=== PATIENT | female | born 1975 | race Two or more races ===

== ENCOUNTER 2016-09-01 06:26 | Observation (INO) | payer OTHER ==
[2016-09-01] VITALS (17 sets, daily range): BP systolic 104–144; BP diastolic 59–95; PULSE 73–93; RESP 14–23; Ht 160 cm; Wt 121.0 kg
[~2016-09-01] VITALS: Ht 160 cm; Wt 121.0 kg
[2016-09-01] MEDS ORDERED: LISI40TA9 PO (07:07)
[2016-09-01] MEDS ORDERED: AMLO-147 PO (07:08)
[2016-09-01] MEDS ORDERED: ESCI20TA PO (07:08)
[2016-09-01] MEDS ORDERED: LEVO100T82 PO (07:09)
[2016-09-01] MEDS ORDERED: RANO10002 PO (07:09)
[2016-09-01] MEDS ORDERED: METO-448 PO (07:10)
[2016-09-01] MEDS ORDERED: ROPI1TAB24 PO (07:11)
[2016-09-01] MEDS ORDERED: TEMA15CA6 PO (07:12)
[2016-09-01] MEDS ORDERED: FER325 PO (07:12)
[2016-09-01] MEDS ORDERED: ACET500C PO (07:14)
[2016-09-01] MEDS ORDERED: FURO-110 PO (07:14)
[2016-09-01] MEDS ORDERED: ISOS30TA5 PO (07:15)
--- NOTE | 2016-09-01 07:55 | RADRPT ---
PROCEDURE: XR Chest. CLINICAL INDICATION: Preoperative, coronary artery disease TECHNIQUE: Single frontal view of the chest was obtained COMPARISON: None FINDINGS: The heart and mediastinum are within normal limits. The lungs are clear. There is no pleural effusion or pneumothorax. RPTAT: AA IMPRESSION: No acute disease. .Jonathan Bell MD, MD Date Time Electronically viewed and signed by .Jonathan Bell MD, on 09/01/2016 07:55 .S/
[2016-09-01] MEDS ORDERED: DIPHENHYDRAMINE 50 MG CAP PO SCH (08:00)
[2016-09-01] MEDS ORDERED: SOD CHLORIDE 0.45% 1,000 ML IV SCH (08:00)
[2016-09-01] MEDS ORDERED: FAMOTIDINE 20 MG TAB PO SCH (08:00)
[2016-09-01] MEDS ORDERED: DIAZEPAM 5 MG TAB PO SCH (08:00)
[2016-09-01 08:20] LABS: ADD SCAN DIFF NO
[2016-09-01 08:30] LABS: ABNORMAL IP MESSAGE 1; BASOPHIL # 0.1 10^3/ul (0.0-0.1); BASOPHILS % 0.7 % (0.0-2.0); EOSINOPHILS # 0.2 10^3/ul (0.0-0.5); EOSINOPHILS % 2.6 % (0.0-7.0); HEMATOCRIT 34.2 % (37.0-47.0); HEMOGLOBIN 9.9 g/dl (12.0-16.0); LYMPHOCYTES # 2.6 10^3/ul (0.8-2.9); LYMPHOCYTES % 28.7 % (15.0-51.0); MEAN CORPUSCULAR HEMOGLOBIN 21.3 pg (29.0-33.0); MEAN CORPUSCULAR HGB CONC 28.9 g/dl (32.0-37.0); MEAN CORPUSCULAR VOLUME 73.7 fl (82.0-101.0); MEAN PLATELET VOLUME 10.2 fl (7.4-10.4); MONOCYTE # 0.6 10^3/ul (0.3-0.9); MONOCYTES % 6.4 % (0.0-11.0); NEUTROPHIL # 5.5 10^3/ul (1.6-7.5); NEUTROPHILS % 61.3 % (39.0-77.0); PLATELET COUNT 393 10^3/UL (140-415); RED BLOOD COUNT 4.64 10^6/ul (4.20-5.40); RED CELL DISTRIBUTION WIDTH 20.3 % (11.5-14.5); WHITE BLOOD COUNT 8.9 10^3/ul (4.8-10.8)
[2016-09-01 08:56] LABS: CHOL/HDL RATIO 5.2 RATIO; CREATININE 0.74 mg/dl (0.44-1.00); POTASSIUM 3.8 mmol/L (3.5-5.1)
[2016-09-01 08:57] LABS: CALCIUM 8.7 mg/dl (8.4-10.2); INR 0.99; PROTIME 13.1 Sec (12.2-14.2)
[2016-09-01 08:58] LABS: PARTIAL THROMBOPLASTIN TIME 27.5 Sec (25.0-35.0)
[2016-09-01] MEDS ORDERED: VERAPAMIL 5 MG INJ ONE (09:27)
[2016-09-01] MEDS ORDERED: MIDAZOLAM 1 MG/ML 2 ML INJ ONE (09:27)
[2016-09-01] MEDS ORDERED: LIDOCAINE 1% (MDV) 20 ML INJ ONE (09:27)
[2016-09-01] MEDS ORDERED: HEPARIN 1000 UNITS/ML 10 ML INJ ONE (09:27)
[2016-09-01] MEDS ORDERED: FENTAnyl 50 MCG/ML VIAL ONE (09:27)
[2016-09-01] MEDS ORDERED: NITROGLYCERIN (IC) 100 MCG/ML INJ ONE ×2 (09:28→10:11)
[2016-09-01] MEDS ORDERED: BIVALIRUDIN 250MG /NS 50 ML 50 ML IVPB ONE ×2 (10:21→10:43)
[2016-09-01] MEDS ORDERED: CLOPIDOGREL 300 MG TAB ONE (11:03)
[2016-09-01] MEDS ORDERED: ASPIRIN 325 MG TAB ONE (11:04)
[2016-09-01] MEDS ORDERED: IODIXANOL LOCM 100 ML BTL ONE ×2 (11:20→12:48)
[2016-09-01] MEDS ORDERED: BIVALIRUDIN 250MG /NS 50 ML 50 ML IVPB SCH (12:04)
[2016-09-01] MEDS ORDERED: SOD CHLORIDE 0.9% 1,000 ML IV SCH (12:04)
[2016-09-01] MEDS ORDERED: OXYCODONE/ACETAMINOPHEN (5/325) TAB PO PRN (12:30)
[2016-09-01] MEDS ORDERED: ZOLPIDEM 5 MG TAB PO PRN (12:30)
[2016-09-01] MEDS ORDERED: ONDANSETRON 4 MG INJ IV PRN (12:30)
[2016-09-01] MEDS ORDERED: ACETAMINOPHEN 325 MG TAB PO PRN (12:30)
[2016-09-01] MEDS ORDERED: morphine 2 MG INJ IV PRN (12:30)
[2016-09-01] MEDS ORDERED: AL HYDROX/MG HYDROX/SIMETH 30 ML CUP PO PRN (12:30)
--- NOTE | 2016-09-01 13:25 | RADRPT ---
Vent Rate: 72 bpm RR Interval: 0 msec SC Interval: 168 msec QRS Duration: 92 msec QT Interval: 444 msec QTC Interval: 486 msec P-R-T [place]: 39 - 30 - 29 degrees Normal sinus rhythm Prolonged QT Abnormal ECG Electronically Signed By: Yandel Salazar [id number]
--- NOTE | 2016-09-01 13:26 | RADRPT ---
Vent Rate: 73 bpm RR Interval: 0 msec [place] Interval: 176 msec QRS Duration: 92 msec QT Interval: 440 msec QTC Interval: 484 msec P-R-T [place]: 40 - 31 - 49 degrees Normal sinus rhythm Prolonged QT Abnormal ECG Electronically Signed By: Yandel Salazar [id number]
--- NOTE | 2016-09-01 14:16 | CARRPT ---
DATE OF PROCEDURE: 09/01/2016 TYPE OF PROCEDURE: 1. Left heart catheterization. 2. Coronary angiography. 3. Measurement of left ventricular end diastolic pressure. 4. Percutaneous transluminal coronary angioplasty with placement of Synergy drug-eluting stents x4 x1 to LAD with a 2.5 x 12 x1 mm to distal circumflex, 2.25 x 16 mm and x2 to ramus with a 2.5 x 8 mm and 2.5 x 20 mm. 5. Moderate conscious sedation x120 minutes. ATTENDING PHYSICIAN: Ilene Beasley MD REFERRING PHYSICIAN: Dr. Sonu Rojas. TYPE OF ANESTHESIA: Conscious and local. INDICATION: Chest pain with positive stress test findings for incidence of lateral ischemia. BRIEF HISTORY AND HOSPITAL: The patient is a 40-year-old female with history of hypertension, dysli pidemia who initially had complaints of substernal chest pain. The patient subsequently had a cardi ac stress test revealing positive ischemia in inferolateral distribution. Given these findings, the patient referred for and presents today in order to undergo left heart catheterization to assess fo r the possibility of significant obstructive coronary symptoms of chest pain and subsequent positive stress test findings. PROCEDURE: After informed consent was obtained, the patient was brought to the [facility] cardiac catheterization lab where her right radial area was prepped and draped in the usual fashion. Lidocaine 2% was instilled in the right radial area in order to achieve adequate anesthes ia. With modified Seldinger technique, the radial artery was cannulated and a 6[place] arterial she ath was placed. A 6[place] JL3.5 catheter was used to cannulate the left main coronary ostium. Wit h contrast injection, multiple views of the left coronary system were obtained. A ____JL3.5 ____ove r a guidewire and a JR4 was used to cannulate right coronary arterial ostium. With contrast injecti on, multiple views of the right coronary arterial system were obtained. A JL4 ____guidewire and a JR4 was then used across the LV. Left ventricular end-diastolic pressure was measured and pulled ba ck across the aortic valve to assess for significant gradient, which there was not and removed. At this time, given the findings of multivessel obstructive lesion, we moved directly to interventional procedure. An XB LAD 6[place] guide was used to cannulate the left main coronary ostium. A 0.014 balance ____ guidewire was passed distal to the lesion in the LAD, it was directly stented with a 2. 25 x 2.5 x 12 mm drug-eluting stent deployed at 14 atmospheres, post-dilated with the stent delivery system up to 16 atmospheres. Followup angiogram was obtained revealing excellent result deployment of the stent, PORSCHE 3 flow throughout the vessel, no signs of complication including perforation or dissection. Subsequently, at this time, the interventional stent delivery system was removed. The wire was pulled back and repositioned distal into the circumflex past the lesion in the distal circu mflex and this was initially ballooned with a 2.0 x 12 mm balloon up to 14 atmospheres. This was re moved and the lesion was stented with a 2.25 x 16 mm drug-eluting stent deployed at 14 atmospheres x 2. ____stent delivery system was removed. Followup angiogram was obtained revealing excellent resu lt deployment of the stent, PORSCHE 3 flow throughout the vessel, no signs of complication including pe rforation or dissection. Subsequently, at this time, the wire was removed, as there was a kink in t he wire and was causing a pushback on the stent and a new wire was inserted, this wire was a RUDI, bharathi corcoran able to use to use the cross lesion in the ramus and subsequently a 2.0 x 12 mm balloon was used t o perform balloon angioplasty upon this lesion. The balloon was removed after inflating multiple ti mes up to ____atmospheres and ____a very tight lesion and additionally ____ just distal to this and then subsequently at this time, this lesion was stented with a 2.5 x 20 mm drug-eluting stent deploy ed at 14 atmospheres x2. Followup angiogram was obtained after removal of the stent delivery system and revealing an excellent result ____ of the stent, PORSCHE 3 flow throughout the vessel, no signs of complication including perforation or dissection. Subsequently, at this time a 2.5 x 8 mm stent bharathi corcoran used to directly stent the ostium of this vessel and deployed at 14 atmospheres x2. The stent sys tem was removed. Followup angiogram was obtained revealing excellent deployment of this ____ stent and the flow throughout the vessel and no signs of complication including perforation or dissection. Subsequently, at this time, the interventional guidewires and guide were removed after patient had a final angiographic images taken of the head, giving 200 mcg of IC nitroglycerin. Patient was giv en 600 mg p.o. Plavix and 25 mg of aspirin and catheter was removed. The patient's sheath was reji usman. TR band was applied. There were no noted complications. FINDINGS: 1. Coronary angiography: Left main 5 mm, no significant stenoses. Circumflex proximally is a 3.0 mm vessel and then right after its takeoff has an cystic-appearing 60% stenosis to dominant circumfl ex in its distal portion. This left sided PDA has a 99% stenosis. There is a more proximal branchi ng obtuse marginal 2.5 mm with a separation to daughter branch with the superior branch having a 30% stenosis. The LAD proximally is a 3 mm vessel and in its midportion has a very focal 90% stenosis. The proximal part of the LAD has an approximately 40 to 50% stenosis. There are 2 mid branching d iagonals, each approximately 2 mm with no significant focal stenoses and the ramus branch, a 2.5 mm vessel with an ostial 80% stenosis and a mid-body 95% stenosis. The right coronary artery proximall y is a 2 mm vessel and thereafter with no significant focal stenoses of the nondominant vessel. PTCA and stent placement: Prior to PTCA and stent placement within the patient's LAD, there is a fo boby 80% stenosis. Post-PTCA and stent placement, there was no residual stenosis, PORSCHE 3 flow throug hout the vessel. No complication including perforation, dissection and additionally diagonal that b ifurcated midway to the lesion remained patent, did suffer some plaque shift and then subsequent im ages had improvement in flow to PORSCHE 3 ____. PTCA and stent placement within the patient's distal left-sided PDA prior to stent placement had a 9 9% stenosis. Post-PTCA and stent placement, the patient had no residual stenosis, PORSCHE 3 flow throu ghout the vessel, no signs of complication including perforation or dissection. PTCA and stent placement within the ramus: Prior to PTCA and stent placement in the ramus. The yuri ent had a mid-body 95% stenosis and a proximal ostial 80% stenosis post-PTCA and stent placement. T he patient had no residual stenosis in either region, PORSCHE 3 flow to the vessel and no signs of comp lication including perforation or dissection and a branch of the ramus that bifurcated midway throug h the stent remained widely patent with PORSCHE 3 flow and no significant plaque shift. TOTAL FLUOROSCOPY TIME: 37 minutes. TOTAL CONTRAST: ____ mL. IMPRESSION: Multivessel obstructive coronary artery disease status post successful percutaneous tr ansluminal coronary angioplasty and stent placement x1 to left anterior descending x1 to distal circ umflex and x2 to ramus. RECOMMENDATIONS: In light of procedure findings at this time would place the patient on: 1. Plavix 75 mg 1 tab p.o. daily x at least 1 year. 2. Aspirin 325 mg 1 tab p.o. daily indefinitely at this time. 3. Maximize medical management. 4. Aggressive risk factor reduction. 5. Patient will be admitted to the ICU for post-intervention observation and continued management o f symptoms with probable discharge the following day. ADDENDUM: The patient had measure of left ventricular end-diastolic pressure measured at 28. No sig nificant aortic stenosis by gradient. No LV gram undertaken due to contrast load and elevated press ures. Dictated By: ILENE WEINSTEIN/MAGALY Conf#: [id number] DID#: [id number]
--- NOTE | 2016-09-01 17:34 | HP ---
DATE OF ADMISSION: 09/01/2016 HISTORY OF PRESENT ILLNESS: The patient is a 40-year-old morbidly obese female with history of dysp antonino with history of hypertension, dyslipidemia and was seen by Dr. Beasley' group as an outpatient b ecause of substernal chest pain. Patient underwent nuclear stress test which was positive for ische micky encephalitis distribution. The patient was brought into the hospital today and underwent left h eart catheterization and the patient was noted to have multivessel obstructive coronary artery disea se. Read detailed cardiac catheterization report from Dr. Beasley for further information. The pat ient underwent PCI and stent placement to LAD and to distal circumflex and 2 stents to ramus. The p atient will be observed in the ICU. The patient after the procedure has remained chest pain free an d no reported diaphoresis, no reported shortness of breath. The patient is saturating 98% on room a ir. No reported recent fever or chills. No reported focal weakness. No reported cough, chest edgar estion. No reported abdominal pain. REVIEW OF SYSTEMS: The rest of review of systems was unremarkable. PAST MEDICAL HISTORY: As stated above. MEDICATIONS PRIOR TO ADMISSION: 1. Amlodipine. 2. Imdur. 3. Lisinopril. 4. Metoprolol. 5. Ranexa 6. Lexapro. 7. Requip. 8. Restoril. 9. Lasix. 10. Levoxyl. ALLERGIES: NONE. SOCIAL HISTORY: No smoking, no alcohol. FAMILY HISTORY: Noncontributory. PHYSICAL EXAMINATION: GENERAL: The patient is conscious, awake, alert, in no acute distress. VITAL SIGNS: Temperature 97.3, pulse 84, respirations 19, blood pressure 106/64, O2 saturation 99% on room air. HEENT: No eye discharge or redness. Oropharynx clear. NECK: Supple. No mass, no thyromegaly. CHEST: Fairly clear. No use of accessory muscles. CARDIOVASCULAR: S1, S2 normal. No murmur, gallop, or rub heard. ABDOMEN: Soft, nondistended, nontender. EXTREMITIES: No leg edema. Pedal pulses palpable. SKIN: Without acute rash. NEUROLOGIC: The patient is awake, alert, and with no gross focal deficit. LABORATORY DATA: WBC 8.9, hemoglobin 9.9, platelets 393. Sodium 141, potassium 3.8, BUN 18, creati nine 0.7, glucose 118, LDL 123, HDL 37. IMPRESSION: 1. Multivessel coronary artery disease status post percutaneous coronary intervention to the left a nterior descending, distal circumflex and ramus. 2. Hypertension. 3. Dyslipidemia. 4. Hypothyroidism. 5. Obesity. 6. Anemia. PLAN: Patient admitted in ICU and will be started on aspirin, Plavix and statin. We will also cont inue beta jas. Will hold off on Isordil and Amlodipine due to low blood pressure. We will als o hold off on Lasix for now. We will continue iron. The patient would need to follow up with her P MD for further workup for anemia. Apparently the patient is already on iron indicating that she has a known history of anemia. Further recommendations to depend on patient's hospital course and aria mmendations from Dr. Beasley. We will continue to follow from a medical standpoint. Dictated By: CAESAR WOOD/MAGALY Conf#: [id number] DID#: [id number]
[2016-09-01] MEDS ORDERED: METOPROLOL 25 MG TAB PO SCH (21:00)
[2016-09-01] MEDS: ATORVASTATIN 40 MG TAB NGT SCH (21:49)
[2016-09-01] MEDS: RANOLAZINE (SR) 500 MG TAB PO SCH (21:51)
[2016-09-01] MEDS: ROPINIROLE 1 MG TAB PO SCH (21:51)
[2016-09-02] VITALS (20 sets, daily range): BP systolic 73–137; BP diastolic 41–103; PULSE 65–81; RESP 0–26
[2016-09-02 05:15] LABS: ADD SCAN DIFF NO
[2016-09-02 05:25] LABS: BASOPHILS % 0.3 % (0.0-2.0); EOSINOPHILS # 0.2 10^3/ul (0.0-0.5); EOSINOPHILS % 2.7 % (0.0-7.0); HEMATOCRIT 31.5 % (37.0-47.0); HEMOGLOBIN 9.2 g/dl (12.0-16.0); LYMPHOCYTES # 2.6 10^3/ul (0.8-2.9); MEAN CORPUSCULAR HEMOGLOBIN 21.4 pg (29.0-33.0); MEAN CORPUSCULAR HGB CONC 29.2 g/dl (32.0-37.0); MEAN CORPUSCULAR VOLUME 73.3 fl (82.0-101.0); MEAN PLATELET VOLUME 9.6 fl (7.4-10.4); MONOCYTE # 0.7 10^3/ul (0.3-0.9); MONOCYTES % 8.1 % (0.0-11.0); NEUTROPHIL # 5.4 10^3/ul (1.6-7.5); NEUTROPHILS % 59.8 % (39.0-77.0); PLATELET COUNT 325 10^3/UL (140-415)
[2016-09-02 05:52] LABS: CALCIUM 8.5 mg/dl (8.4-10.2); CHOL/HDL RATIO 6.1 RATIO; CREATININE 0.68 mg/dl (0.44-1.00); POTASSIUM 3.6 mmol/L (3.5-5.1)
[2016-09-02 05:58] LABS: CK-MB 1.85 ng/ml (0.0-2.4)
[2016-09-02 06:15] LABS: TROPONIN-I 0.35 ng/ml (0.00-0.12)
[2016-09-02] MEDS ORDERED: LISINOPRIL 20 MG TAB PO SCH (09:00)
[2016-09-02] MEDS: FERROUS SULFATE (EC) 325 MG TAB PO SCH (09:00)
[2016-09-02] MEDS: ACETAZOLAMIDE (SR) 500 MG CAP PO SCH (09:01)
[2016-09-02] MEDS: LEVOTHYROXINE 100 MCG TAB PO SCH (09:01)
[2016-09-02] MEDS: ASPIRIN (EC) 325 MG TAB PO SCH (09:02)
[2016-09-02] MEDS: ESCITALOPRAM 10 MG TAB PO SCH (09:03)
[2016-09-02] MEDS: RANOLAZINE (SR) 500 MG TAB PO SCH ×2 (09:03→21:38)
[2016-09-02] MEDS: CLOPIDOGREL 75 MG TAB PO SCH (09:03)
--- NOTE | 2016-09-02 10:42 | PN ---
Date/Time of Note Date/Time of Note DATE: 09/02/16 TIME: 10:36 Assessment/Plan Lines/Catheters IV C[facility]ter Type (from [facility]): Peripheral IV Assessment/Plan Assessment/Plan 1. Multivessel coronary artery disease sp percutaneous coronary intervention to the left anterior descending, distal circumflex and ramus. Patient c/o chest pain and nausea at present - per cardiology - Elevated troponin 2. Hypertension. 3. Dyslipidemia. 4. Hypothyroidism. 5. Obesity. 6. Anemia. PLAN: Patient admitted in ICU and will be started on aspirin, Plavix and statin. We will also continue beta jas. Will hold off on Isordil and Amlodipine due to low blood pressure. We will also hold off on Lasix for now. We will continue iron. The patient would need to follow up with her PMD for further workup for anemia. Apparently the patient is already on iron indicating that she has a known history of anemia. Further recommendations to depend on patient's hospital course and recommendations from Dr. Beasley. We will continue to follow from a medical standpoint. Subjective 24 Hr Interval Summary Free Text/Dictation Patient c/o chest pain and nausea at present. denies any nausea/abdominal pain. Troponin elevated.daughter at bedside- all Qs answered. Eyes: no complaints ENT: no complaints Respiratory: no complaints Cardiovascular: chest pain Gastrointestinal: no complaints Genitourinary: no complaints Musculoskeletal: no complaints Skin: no complaints Neurologic: no complaints Endocrine: no complaints Lymphatic: no complaints Psychological: nl mood/affect Immunologic: no complaints Exam/Review of Systems Vital Signs Vitals Vital Signs Date Time Temp Pulse Resp B/P Pulse Ox O2 Delivery O2 Flow Rate FiO2 09/02/16 08:00 71 09/02/16 06:00 23 73/41 94 Room Air 09/02/16 04:00 98.2 Intake and Output 09/01/16 09/01/16 09/02/16 15:00 23:00 07:00 Intake Total 450 ml 720 ml 270 ml Output Total 400 ml 300 ml Balance 50 ml 420 ml 270 ml Exam Constitutional: alert, oriented, well developed Psych: nl mood/affect Head: atraumatic Eyes: EOMI Neck: non-tender Respiratory: clear to auscultation Cardiovascular: nl pulses, regular rate and rhythm Gastrointestinal: non-tender, soft Musculoskeletal: nl extremities to inspection Extremities: normal pulses Neurological: nl mental status, nl speech Skin: nl turgor Lymph: nontender Results Result Diagram: 09/02/16 0450 09/02/16 0450 Results 24 hrs Laboratory Tests Test 09/02/16 04:50 White Blood Count 9.0 Red Blood Count 4.30 Hemoglobin 9.2 L Hematocrit 31.5 L Mean Corpuscular Volume 73.3 L Mean Corpuscular Hemoglobin 21.4 L Mean Corpuscular Hemoglobin Concent 29.2 L Red Cell Distribution Width 20.0 H Platelet Count 325 Mean Platelet Volume 9.6 Neutrophils % 59.8 Lymphocytes % 29.0 Monocytes % 8.1 Eosinophils % 2.7 Basophils % 0.3 Nucleated Red Blood Cells % 0.0 Neutrophils # 5.4 Lymphocytes # 2.6 Monocytes # 0.7 Eosinophils # 0.2 Basophils # 0.0 Nucleated Red Blood Cells # 0.0 Sodium Level 139 Potassium Level 3.6 Chloride Level 109 Carbon Dioxide Level 24 Anion Gap 10 # Blood Urea Nitrogen 12 Creatinine 0.68 Glucose Level 95 Calcium Level 8.5 Creatine Kinase 117 Creatine Kinase Index 1.6 Creatinine Kinase MB (Mass) 1.85 Troponin I 0.350 *H Triglycerides Level 134 Cholesterol Level 196 LDL Cholesterol, Calculated 137 HDL Cholesterol 32 L Cholesterol/HDL Ratio 6.1 Medications Medications Current Medications Sodium Chloride (1/2 NS) 1,000 ml @ 0 mls/hr Q0M IV ; Start 09/01/16 at 08:00 Aspirin (Ecotrin) 325 mg DAILY PO Last administered on 09/02/16 09:02; Admin Dose 325 MG; Start 09/02/16 at 09:00 Clopidogrel Bisulfate (plaVIX) 75 mg DAILY PO Last administered on 09/02/16 09 :03; Admin Dose 75 MG; Start 09/02/16 at 09:00 Acetaminophen (Tylenol Tab) 650 mg Q4H PRN PO NON-CARDIAC PAIN LEVEL 1-3; Start 09/01/16 at 12:30 Oxycodone/ Acetaminophen (Percocet (5/ 325)) 1 tab Q4H PRN PO REPORTED NON- CARDIAC PAIN 4-7; Start 09/01/16 at 12:30 Morphine Sulfate (morphine) 1 mg Q1H PRN IV PAIN NOT RELIEVED BY OTHERS; Start 09/01/16 at 12:30 Al Hydrox/Mg Hydrox/Simethicone (Mag-Al Plus) 30 ml Q4H PRN PO GASTROINTESTINAL UPSET; Start 09/01/16 at 12:30 Ondansetron HCl (Zofran Inj) 4 mg Q4H PRN IV NAUSEA AND/OR VOMITING; Start at 12:30 Acetazolamide (Diamox Sequels) 500 mg DAILY PO Last administered on 09/02/16 09:01; Admin Dose 500 MG; Start 09/02/16 at 09:00 Escitalopram Oxalate (Lexapro) 20 mg DAILY PO Last administered on 09/02/16 09 :03; Admin Dose 20 MG; Start 09/02/16 at 09:00 Ferrous Sulfate (Ferrous Sulfate (Ec)) 325 mg DAILY PO ; Start 09/02/16 at 09:00 Lisinopril (Zestril) 40 mg DAILY PO ; Start 09/02/16 at 09:00 Metoprolol Tartrate (Lopressor) 25 mg QHS PO Last administered on 09/01/16 21: 50; Admin Dose 25 MG; Start 09/01/16 at 21:00 Ranolazine (Ranexa) 1,000 mg Q12 PO Last administered on 09/02/16 09:03; Admin Dose 1,000 MG; Start 09/01/16 at 21:00 Ropinirole HCl (Requip) 1.5 mg HS PO Last administered on 09/01/16 21:51; Admin Dose 1.5 MG; Start 09/01/16 at 21:00 Atorvastatin Calcium (Lipitor) 40 mg HS NGT Last administered on 09/01/16 21: 49; Admin Dose 40 MG; Start 09/01/16 at 21:00 CHRISTIAN LIVE September 02, 2016 10:42
--- NOTE | 2016-09-02 11:36 | CONS ---
Date/Time of Note Date/Time of Note DATE: 09/02/16 TIME: 11:31 Assessment/Plan Assessment/Plan Chief Complaint/Hosp Course IMP: 1.CAd s/p PTCA stent to Ramus x 2/Lcx x 1 and LAD x 1 POD#1 2.Abnl MPI-+ ischemia 3.Chest pain 4.HTN 5.HL 6.Hypothyroid 7.Headache 8.Anemia Recc: -Follow BP closely and change BB to BID dosing and decrase doses of zestril to allow patient to better tolerate -Follow for recurrent sx and follow headache of onset this am closely -Continue asa/plavix/statin/ranexa -Follow hgb closely -Ok to tele and possible d/c home if stable later in after noon with no sx. Problems: Consultation Date/Type/Reason Admit Date/Time September 01, 2016 at 12:04 Initial Consult Date 09/01/2016 Type of Consultation: Cardiology Reason for Consultation s/p PTCA/stent Referring Provider: MICHAEL CRANDALL MD Exam/Review of Systems Vital Signs Vitals Vital Signs Date Time Temp Pulse Resp B/P Pulse Ox O2 Delivery O2 Flow Rate FiO2 09/02/16 10:00 74 17 118/61 99 Room Air 09/02/16 08:00 98.4 Intake and Output 09/01/16 09/01/16 09/02/16 15:00 23:00 07:00 Intake Total 450 ml 720 ml 270 ml Output Total 400 ml 300 ml Balance 50 ml 420 ml 270 ml Exam Review of Systems: CONSTITUTIONAL: No fevers, chills. PULMONARY: No sob CARDIOVASCULAR: mild chest pain GASTROINTESTINAL: No nausea/vomiting. GENITOURINARY: No hematuria/dysuria. MUSCULOSKELETAL: No myagias/arthalgias. PSYCHIATRIC: The patient denies depression. NEUROLOGIC: Mild headache Constitutional: alert Psych: no complaints Head: normocephalic ENMT: mucosa pink and moist Neck: jvd (8 cm water), supple Respiratory: clear to auscultation Cardiovascular: regular rate and rhythm Gastrointestinal: non-tender, soft Musculoskeletal: muscle tone (normal) Extremities: other (No focalm deficits) Results Result Diagram: 09/02/16 0450 09/02/16 0450 Results 24 hrs Laboratory Tests Test 09/02/16 04:50 White Blood Count 9.0 Red Blood Count 4.30 Hemoglobin 9.2 L Hematocrit 31.5 L Mean Corpuscular Volume 73.3 L Mean Corpuscular Hemoglobin 21.4 L Mean Corpuscular Hemoglobin Concent 29.2 L Red Cell Distribution Width 20.0 H Platelet Count 325 Mean Platelet Volume 9.6 Neutrophils % 59.8 Lymphocytes % 29.0 Monocytes % 8.1 Eosinophils % 2.7 Basophils % 0.3 Nucleated Red Blood Cells % 0.0 Neutrophils # 5.4 Lymphocytes # 2.6 Monocytes # 0.7 Eosinophils # 0.2 Basophils # 0.0 Nucleated Red Blood Cells # 0.0 Sodium Level 139 Potassium Level 3.6 Chloride Level 109 Carbon Dioxide Level 24 Anion Gap 10 # Blood Urea Nitrogen 12 Creatinine 0.68 Glucose Level 95 Calcium Level 8.5 Creatine Kinase 117 Creatine Kinase Index 1.6 Creatinine Kinase MB (Mass) 1.85 Troponin I 0.350 *H Triglycerides Level 134 Cholesterol Level 196 LDL Cholesterol, Calculated 137 HDL Cholesterol 32 L Cholesterol/HDL Ratio 6.1 Medications Medications Current Medications Sodium Chloride (1/2 NS) 1,000 ml @ 0 mls/hr Q0M IV ; Start 09/01/16 at 08:00 Aspirin (Ecotrin) 325 mg DAILY PO Last administered on 09/02/16 09:02; Admin Dose 325 MG; Start 09/02/16 at 09:00 Clopidogrel Bisulfate (plaVIX) 75 mg DAILY PO Last administered on 09/02/16 09 :03; Admin Dose 75 MG; Start 09/02/16 at 09:00 Acetaminophen (Tylenol Tab) 650 mg Q4H PRN PO NON-CARDIAC PAIN LEVEL 1-3 Last administered on 09/02/16 11:21; Admin Dose 650 MG; Start 09/01/16 at 12:30 Oxycodone/ Acetaminophen (Percocet (5/ 325)) 1 tab Q4H PRN PO REPORTED NON- CARDIAC PAIN 4-7; Start 09/01/16 at 12:30 Morphine Sulfate (morphine) 1 mg Q1H PRN IV PAIN NOT RELIEVED BY OTHERS; Start 09/01/16 at 12:30 Al Hydrox/Mg Hydrox/Simethicone (Mag-Al Plus) 30 ml Q4H PRN PO GASTROINTESTINAL UPSET; Start 09/01/16 at 12:30 Ondansetron HCl (Zofran Inj) 4 mg Q4H PRN IV NAUSEA AND/OR VOMITING; Start at 12:30 Acetazolamide (Diamox Sequels) 500 mg DAILY PO Last administered on 09/02/16 09:01; Admin Dose 500 MG; Start 09/02/16 at 09:00 Escitalopram Oxalate (Lexapro) 20 mg DAILY PO Last administered on 09/02/16 09 :03; Admin Dose 20 MG; Start 09/02/16 at 09:00 Ferrous Sulfate (Ferrous Sulfate (Ec)) 325 mg DAILY PO ; Start 09/02/16 at 09:00 Lisinopril (Zestril) 40 mg DAILY PO ; Start 09/02/16 at 09:00 Metoprolol Tartrate (Lopressor) 25 mg QHS PO Last administered on 09/01/16 21: 50; Admin Dose 25 MG; Start 09/01/16 at 21:00 Ranolazine (Ranexa) 1,000 mg Q12 PO Last administered on 09/02/16 09:03; Admin Dose 1,000 MG; Start 09/01/16 at 21:00 Ropinirole HCl (Requip) 1.5 mg HS PO Last administered on 09/01/16 21:51; Admin Dose 1.5 MG; Start 09/01/16 at 21:00 Atorvastatin Calcium (Lipitor) 40 mg HS NGT Last administered on 09/01/16 21: 49; Admin Dose 40 MG; Start 09/01/16 at 21:00 ILENE BUTLER September 02, 2016 11:36
--- NOTE | 2016-09-02 17:38 | RADRPT ---
Vent Rate: 66 bpm RR Interval: 0 msec [place] Interval: 176 msec QRS Duration: 96 msec QT Interval: 460 msec QTC Interval: 482 msec P-R-T [place]: 46 - 35 - 27 degrees Normal sinus rhythm Prolonged QT Abnormal ECG Electronically Signed By: Yandel Salazar [id number]
[2016-09-02] MEDS: METOPROLOL 25 MG TAB PO SCH (21:37)
[2016-09-02] MEDS: ROPINIROLE 1 MG TAB PO SCH (21:38)
[2016-09-02] MEDS: ATORVASTATIN 40 MG TAB NGT SCH (21:39)
[2016-09-03] VITALS (21 sets, daily range): BP systolic 81–133; BP diastolic 50–93; PULSE 66–88; RESP 7–30
[2016-09-03 05:28] LABS: ADD SCAN DIFF NO
[2016-09-03 05:33] LABS: BASOPHILS % 0.5 % (0.0-2.0); EOSINOPHILS # 0.2 10^3/ul (0.0-0.5); HEMATOCRIT 30.5 % (37.0-47.0); HEMOGLOBIN 9.1 g/dl (12.0-16.0); LYMPHOCYTES # 2.7 10^3/ul (0.8-2.9); LYMPHOCYTES % 33.1 % (15.0-51.0); MEAN CORPUSCULAR HEMOGLOBIN 21.6 pg (29.0-33.0); MEAN CORPUSCULAR HGB CONC 29.8 g/dl (32.0-37.0); MEAN CORPUSCULAR VOLUME 72.3 fl (82.0-101.0); MEAN PLATELET VOLUME 9.4 fl (7.4-10.4); MONOCYTE # 0.6 10^3/ul (0.3-0.9); MONOCYTES % 7.9 % (0.0-11.0); NEUTROPHIL # 4.5 10^3/ul (1.6-7.5); NEUTROPHILS % 55.3 % (39.0-77.0); PLATELET COUNT 326 10^3/UL (140-415); RED BLOOD COUNT 4.22 10^6/ul (4.20-5.40); RED CELL DISTRIBUTION WIDTH 19.9 % (11.5-14.5); WHITE BLOOD COUNT 8.1 10^3/ul (4.8-10.8)
[2016-09-03 05:57] LABS: ALBUMIN 3.8 g/dl (3.3-4.9); POTASSIUM 3.9 mmol/L (3.5-5.1)
[2016-09-03 05:59] LABS: BILIRUBIN,INDIRECT 0.2 mg/dl (0-1.1); BILIRUBIN,TOTAL 0.2 mg/dl (0.2-1.3); CREATININE 0.66 mg/dl (0.44-1.00)
[2016-09-03 06:00] LABS: ALBUMIN/GLOBULIN RATIO 1.02; TOTAL PROTEIN 7.5 g/dl (6.1-8.1)
[2016-09-03 06:01] LABS: CALCIUM 9.1 mg/dl (8.4-10.2)
[2016-09-03] MEDS: ASPIRIN (EC) 325 MG TAB PO SCH (08:26)
[2016-09-03] MEDS: LEVOTHYROXINE 100 MCG TAB PO SCH (08:26)
[2016-09-03] MEDS: ACETAZOLAMIDE (SR) 500 MG CAP PO SCH (08:26)
[2016-09-03] MEDS: RANOLAZINE (SR) 500 MG TAB PO SCH ×2 (08:26→21:00)
[2016-09-03] MEDS: CLOPIDOGREL 75 MG TAB PO SCH (08:27)
[2016-09-03] MEDS: ESCITALOPRAM 10 MG TAB PO SCH (08:27)
[2016-09-03] MEDS: METOPROLOL 25 MG TAB PO SCH ×2 (08:33→20:59)
[2016-09-03] MEDS ORDERED: LISINOPRIL 20 MG TAB PO SCH (09:00)
[2016-09-03] MEDS: FERROUS SULFATE (EC) 325 MG TAB PO SCH (09:00)
--- NOTE | 2016-09-03 11:28 | RADRPT ---
Vent Rate: 69 bpm RR Interval: 0 msec [place] Interval: 174 msec QRS Duration: 98 msec QT Interval: 444 msec QTC Interval: 475 msec P-R-T [place]: 41 - 39 - 21 degrees Normal sinus rhythm Nonspecific T wave abnormality Prolonged QT Abnormal ECG Electronically Signed By: Yandel Salazar [id number]
--- NOTE | 2016-09-03 12:50 | CONS ---
Date/Time of Note Date/Time of Note DATE: 09/03/16 TIME: 12:47 Assessment/Plan Assessment/Plan Chief Complaint/Hosp Course IMP: 1.CAd s/p PTCA stent to Ramus x 2/Lcx x 1 and LAD x 1 POD#2. Minimal troponin after procedure as expected level with slow expected downtrend 2.Abnl MPI-+ ischemia 3.Chest pain- c/o mild chest tightness 4.HTN 5.HL 6.Hypothyroid 7.Headache 8.Anemia Recc: -Continue low dose BB as tolerated and zestril -Will add low dose oral nitrates and follow sx -Continue asa/plavix/statin/ranexa -Follow hgb closely -Ok to tele and possible d/c home if stable later in after noon with no sx. Problems: Consultation Date/Type/Reason Admit Date/Time September 03, 2016 at 10:41 Initial Consult Date 09/01/2016 Type of Consultation: Cardiology Reason for Consultation chest pain s/p ptca/stent Referring Provider: MICHAEL CRANDALL MD Exam/Review of Systems Vital Signs Vitals Vital Signs Date Time Temp Pulse Resp B/P Pulse Ox O2 Delivery O2 Flow Rate FiO2 09/03/16 12:00 84 09/03/16 10:00 7 97/69 91 Room Air 09/03/16 08:30 99.0 Intake and Output 09/02/16 09/02/16 09/03/16 15:00 23:00 07:00 Intake Total 480 ml Balance 480 ml Exam Review of Systems: CONSTITUTIONAL: No fevers, chills. PULMONARY: No sob CARDIOVASCULAR: intermittent chest pain GASTROINTESTINAL: No nausea/vomiting. GENITOURINARY: No hematuria/dysuria. MUSCULOSKELETAL: No myagias/arthalgias. PSYCHIATRIC: The patient denies depression. NEUROLOGIC: No weakness Constitutional: alert Psych: no complaints Head: normocephalic ENMT: mucosa pink and moist Neck: jvd (9 cm water), supple Respiratory: diminished breath sounds (at bases/B) Cardiovascular: regular rate and rhythm Gastrointestinal: non-tender, soft Musculoskeletal: muscle tone (normal) Extremities: edema (none) Neurological: other (No focal deficits) Results Result Diagram: 09/03/16 0450 09/03/16 0450 Results 24 hrs Laboratory Tests Test 09/02/16 15:53 09/03/16 04:50 Troponin I 0.191 *H 0.142 *H White Blood Count 8.1 Red Blood Count 4.22 Hemoglobin 9.1 L Hematocrit 30.5 L Mean Corpuscular Volume 72.3 L Mean Corpuscular Hemoglobin 21.6 L Mean Corpuscular Hemoglobin Concent 29.8 L Red Cell Distribution Width 19.9 H Platelet Count 326 Mean Platelet Volume 9.4 Neutrophils % 55.3 Lymphocytes % 33.1 Monocytes % 7.9 Eosinophils % 3.0 Basophils % 0.5 Nucleated Red Blood Cells % 0.0 Neutrophils # 4.5 Lymphocytes # 2.7 Monocytes # 0.6 Eosinophils # 0.2 Basophils # 0.0 Nucleated Red Blood Cells # 0.0 Sodium Level 141 Potassium Level 3.9 Chloride Level 106 Carbon Dioxide Level 22 Anion Gap 17 #H Blood Urea Nitrogen 12 Creatinine 0.66 Glucose Level 105 Calcium Level 9.1 Total Bilirubin 0.2 Direct Bilirubin 0.00 Indirect Bilirubin 0.2 Aspartate Amino Transf (AST/SGOT) 30 Alanine Aminotransferase (ALT/SGPT) 46 Alkaline Phosphatase 54 Total Protein 7.5 Albumin 3.8 Globulin 3.70 H Albumin/Globulin Ratio 1.02 Medications Medications Current Medications Sodium Chloride (1/2 NS) 1,000 ml @ 0 mls/hr Q0M IV ; Start 09/01/16 at 08:00 Aspirin (Ecotrin) 325 mg DAILY PO Last administered on 09/03/16 08:26; Admin Dose 325 MG; Start 09/02/16 at 09:00 Clopidogrel Bisulfate (plaVIX) 75 mg DAILY PO Last administered on 09/03/16 08 :27; Admin Dose 75 MG; Start 09/02/16 at 09:00 Acetaminophen (Tylenol Tab) 650 mg Q4H PRN PO NON-CARDIAC PAIN LEVEL 1-3 Last administered on 09/02/16 11:21; Admin Dose 650 MG; Start 09/01/16 at 12:30 Oxycodone/ Acetaminophen (Percocet (5/ 325)) 1 tab Q4H PRN PO REPORTED NON- CARDIAC PAIN 4-7; Start 09/01/16 at 12:30 Morphine Sulfate (morphine) 1 mg Q1H PRN IV PAIN NOT RELIEVED BY OTHERS; Start 09/01/16 at 12:30 Al Hydrox/Mg Hydrox/Simethicone (Mag-Al Plus) 30 ml Q4H PRN PO GASTROINTESTINAL UPSET; Start 09/01/16 at 12:30 Ondansetron HCl (Zofran Inj) 4 mg Q4H PRN IV NAUSEA AND/OR VOMITING; Start at 12:30 Acetazolamide (Diamox Sequels) 500 mg DAILY PO Last administered on 09/03/16 08:26; Admin Dose 500 MG; Start 09/02/16 at 09:00 Escitalopram Oxalate (Lexapro) 20 mg DAILY PO Last administered on 09/03/16 08 :27; Admin Dose 20 MG; Start 09/02/16 at 09:00 Ferrous Sulfate (Ferrous Sulfate (Ec)) 325 mg DAILY PO ; Start 09/02/16 at 09:00 Ranolazine (Ranexa) 1,000 mg Q12 PO Last administered on 09/03/16 08:26; Admin Dose 1,000 MG; Start 09/01/16 at 21:00 Ropinirole HCl (Requip) 1.5 mg HS PO Last administered on 09/02/16 21:38; Admin Dose 1.5 MG; Start 09/01/16 at 21:00 Atorvastatin Calcium (Lipitor) 40 mg HS NGT Last administered on 09/02/16 21: 39; Admin Dose 40 MG; Start 09/01/16 at 21:00 Lisinopril (Zestril) 20 mg DAILY PO Last administered on 09/03/16 08:32; Admin Dose 20 MG; Start 09/03/16 at 09:00 Metoprolol Tartrate (Lopressor) 12.5 mg BID PO Last administered on 09/03/16 08:33; Admin Dose 12.5 MG; Start 09/02/16 at 21:00 ILENE BUTLER September 03, 2016 12:50
--- NOTE | 2016-09-03 13:25 | PN ---
DATE: 09/03/2016 SUBJECTIVE: Followup on 40-year-old female status post percutaneous transluminal coronary angioplas ty with placement of drug-eluting stents x4, x1 to LAD to distal circumflex and to ramus. Troponin downtrending. The patient is awake, alert and complains of some intermittent chest tightening and a lso complains of being anxious. Stable vital signs. Denies any shortness of breath. OBJECTIVE: VITAL SIGNS: Temperature is 99.0, pulse is 84, blood pressure is 97/69, respiratory rate 20, oxygen saturation is 92% on room air. GENERAL: Obese female, currently is awake, alert. LUNGS: Clear. HEART: Normal S1, S2. No murmurs ____noted. ABDOMEN: Protuberant, bowel sounds present. EXTREMITIES: No edema. LABORATORY AND DIAGNOSTIC DATA: CBC: White blood cells 8.1, hemoglobin 9.1, hematocrit 30.5, plate lets 326. Chemistry: Sodium is 141, potassium 3.9, chloride 106, carbon dioxide 22, anion gap 17, BUN is 12, creatinine 0.66, glucose 105. Troponin is 0.142. ASSESSMENT AND PLAN: 1. Coronary artery disease status post percutaneous transluminal coronary angioplasty, stent to jackie us and left anterior descending. Dr. Beasley is following in cardiology consultation. Continue asp irin and Plavix. Okay to monitor patient on telemetry floor. 2. Hypertension. Continue lisinopril and metoprolol. 3. Hypothyroidism. Continue Synthroid. 4. Obesity with body mass index of 47.3. 5. Anemia. Continue to monitor hemoglobin and hematocrit. Continue iron supplements. 6. Hyperlipidemia. Continue statins. 7. We will continue Protonix for peptic ulcer disease prophylaxis. Further recommendations based o n clinical course. Plan of care discussed with Dr. Gates. Dictated By: ROGER MARKS [employer]ING CLEANER for CAESAR GATES MD SR/NTS Conf#: [id number] DID#: [id number]
[2016-09-03] MEDS: ISOSORBIDE DINITRATE 10 MG TAB PO SCH ×2 (15:04→20:59)
[2016-09-03] MEDS ORDERED: ALPRAZOLAM 0.25 MG TAB PO PRN (19:30)
[2016-09-03] MEDS: ATORVASTATIN 40 MG TAB NGT SCH (21:00)
[2016-09-03] MEDS: ROPINIROLE 1 MG TAB PO SCH (21:01)
[2016-09-04] VITALS (11 sets, daily range): BP systolic 103–147; BP diastolic 55–78; PULSE 64–81; RESP 16–20
[2016-09-04] MEDS ORDERED: PANTOPRAZOLE (EC) 40 MG TAB PO SCH (06:00)
[2016-09-04] MEDS: LEVOTHYROXINE 100 MCG TAB PO SCH (06:22)
[2016-09-04] MEDS ORDERED: LISINOPRIL 5 MG TAB PO SCH (09:00)
[2016-09-04] MEDS: FERROUS SULFATE (EC) 325 MG TAB PO SCH (09:00)
[2016-09-04] MEDS: RANOLAZINE (SR) 500 MG TAB PO SCH (09:07)
[2016-09-04] MEDS: ACETAZOLAMIDE (SR) 500 MG CAP PO SCH (09:08)
[2016-09-04] MEDS: ESCITALOPRAM 10 MG TAB PO SCH (09:08)
[2016-09-04] MEDS: ISOSORBIDE DINITRATE 10 MG TAB PO SCH ×2 (09:08→13:12)
[2016-09-04] MEDS: CLOPIDOGREL 75 MG TAB PO SCH (09:09)
[2016-09-04] MEDS: ASPIRIN (EC) 325 MG TAB PO SCH (09:09)
[2016-09-04] MEDS: METOPROLOL 25 MG TAB PO SCH (09:09)
[2016-09-04 10:27] LABS: ADD SCAN DIFF NO
[2016-09-04 10:31] LABS: BASOPHILS % 0.3 % (0.0-2.0); EOSINOPHILS # 0.2 10^3/ul (0.0-0.5); EOSINOPHILS % 2.7 % (0.0-7.0); HEMOGLOBIN 9.1 g/dl (12.0-16.0); LYMPHOCYTES # 1.6 10^3/ul (0.8-2.9); LYMPHOCYTES % 21.9 % (15.0-51.0); MEAN CORPUSCULAR HEMOGLOBIN 21.5 pg (29.0-33.0); MEAN CORPUSCULAR HGB CONC 29.4 g/dl (32.0-37.0); MEAN CORPUSCULAR VOLUME 73.3 fl (82.0-101.0); MEAN PLATELET VOLUME 9.6 fl (7.4-10.4); MONOCYTE # 0.3 10^3/ul (0.3-0.9); MONOCYTES % 4.7 % (0.0-11.0); NEUTROPHILS % 70.1 % (39.0-77.0); PLATELET COUNT 321 10^3/UL (140-415); RED BLOOD COUNT 4.23 10^6/ul (4.20-5.40); RED CELL DISTRIBUTION WIDTH 20.2 % (11.5-14.5); WHITE BLOOD COUNT 7.1 10^3/ul (4.8-10.8)
[2016-09-04 10:47] LABS: POTASSIUM 3.9 mmol/L (3.5-5.1)
[2016-09-04 10:50] LABS: CREATININE 0.7 mg/dl (0.44-1.00)
[2016-09-04 10:51] LABS: CALCIUM 8.9 mg/dl (8.4-10.2)
--- NOTE | 2016-09-04 12:21 | PN ---
Date/Time of Note Date/Time of Note DATE: 09/04/16 TIME: 12:21 Assessment/Plan VTE Prophylaxis VTE Prophylaxis Intervention: other Lines/Catheters IV Catheter Type (from [facility]): Peripheral IV Assessment/Plan Chief Complaint/Hosp Course 1. Coronary artery disease status post percutaneous transluminal coronary angioplasty, stent to ramus and left anterior descending. Dr. Beasley is following in cardiology consultation. Continue aspirin and Plavix. Okay to monitor patient on telemetry floor. 2. Hypertension. Continue lisinopril and metoprolol. 3. Hypothyroidism. Continue Synthroid. 4. Obesity with body mass index of 47.3. 5. Anemia. Continue to monitor hemoglobin and hematocrit. Continue iron supplements. 6. Hyperlipidemia. Continue statins. 7. We will continue Protonix for peptic ulcer disease prophylaxis. Further recommendations based on clinical course. Problems: Subjective 24 Hr Interval Summary Free Text/Dictation Patient has no complaints Exam/Review of Systems Vital Signs Vitals Vital Signs Date Time Temp Pulse Resp B/P Pulse Ox O2 Delivery O2 Flow Rate FiO2 09/04/16 11:05 98.1 67 17 103/56 96 09/04/16 01:40 Room Air Intake and Output 09/03/16 09/03/16 09/04/16 15:00 23:00 07:00 Intake Total 760 ml 540 ml 250 ml Balance 760 ml 540 ml 250 ml Exam Constitutional: well developed Head: atraumatic, normocephalic Neck: supple Respiratory: clear to auscultation Cardiovascular: regular rate and rhythm Gastrointestinal: non-tender, soft Extremities: normal pulses Results Result Diagram: 09/04/16 1005 09/04/16 1005 Results 24 hrs Laboratory Tests Test 09/04/16 10:05 White Blood Count 7.1 Red Blood Count 4.23 Hemoglobin 9.1 L Hematocrit 31.0 L Mean Corpuscular Volume 73.3 L Mean Corpuscular Hemoglobin 21.5 L Mean Corpuscular Hemoglobin Concent 29.4 L Red Cell Distribution Width 20.2 H Platelet Count 321 Mean Platelet Volume 9.6 Neutrophils % 70.1 Lymphocytes % 21.9 Monocytes % 4.7 Eosinophils % 2.7 Basophils % 0.3 Nucleated Red Blood Cells % 0.0 Neutrophils # 5.0 Lymphocytes # 1.6 Monocytes # 0.3 Eosinophils # 0.2 Basophils # 0.0 Nucleated Red Blood Cells # 0.0 Sodium Level 140 Potassium Level 3.9 Chloride Level 105 Carbon Dioxide Level 22 Anion Gap 17 H Blood Urea Nitrogen 13 Creatinine 0.70 Glucose Level 148 # Calcium Level 8.9 Medications Medications Current Medications Sodium Chloride (1/2 NS) 1,000 ml @ 0 mls/hr Q0M IV ; Start 09/01/16 at 08:00 Aspirin (Ecotrin) 325 mg DAILY PO Last administered on 09/04/16 09:09; Admin Dose 325 MG; Start 09/02/16 at 09:00 Clopidogrel Bisulfate (plaVIX) 75 mg DAILY PO Last administered on 09/04/16 09 :09; Admin Dose 75 MG; Start 09/02/16 at 09:00 Acetaminophen (Tylenol Tab) 650 mg Q4H PRN PO NON-CARDIAC PAIN LEVEL 1-3 Last administered on 09/02/16 11:21; Admin Dose 650 MG; Start 09/01/16 at 12:30 Oxycodone/ Acetaminophen (Percocet (5/ 325)) 1 tab Q4H PRN PO REPORTED NON- CARDIAC PAIN 4-7; Start 09/01/16 at 12:30 Morphine Sulfate (morphine) 1 mg Q1H PRN IV PAIN NOT RELIEVED BY OTHERS; Start 09/01/16 at 12:30 Al Hydrox/Mg Hydrox/Simethicone (Mag-Al Plus) 30 ml Q4H PRN PO GASTROINTESTINAL UPSET; Start 09/01/16 at 12:30 Ondansetron HCl (Zofran Inj) 4 mg Q4H PRN IV NAUSEA AND/OR VOMITING; Start at 12:30 Acetazolamide (Diamox Sequels) 500 mg DAILY PO Last administered on 09/04/16 09:08; Admin Dose 500 MG; Start 09/02/16 at 09:00 Escitalopram Oxalate (Lexapro) 20 mg DAILY PO Last administered on 09/04/16 09 :08; Admin Dose 20 MG; Start 09/02/16 at 09:00 Ferrous Sulfate (Ferrous Sulfate (Ec)) 325 mg DAILY PO ; Start 09/02/16 at 09:00 Ranolazine (Ranexa) 1,000 mg Q12 PO Last administered on 09/04/16 09:07; Admin Dose 1,000 MG; Start 09/01/16 at 21:00 Ropinirole HCl (Requip) 1.5 mg HS PO Last administered on 09/03/16 21:01; Admin Dose 1.5 MG; Start 09/01/16 at 21:00 Atorvastatin Calcium (Lipitor) 40 mg HS NGT Last administered on 09/03/16 21: 00; Admin Dose 40 MG; Start 09/01/16 at 21:00 Metoprolol Tartrate (Lopressor) 12.5 mg BID PO Last administered on 09/04/16 09:09; Admin Dose 12.5 MG; Start 09/02/16 at 21:00 Lisinopril (Zestril) 5 mg DAILY PO Last administered on 09/04/16 09:09; Admin Dose 5 MG; Start 09/04/16 at 09:00 Isosorbide Dinitrate (Isordil) 10 mg TID PO Last administered on 09/04/16 09: 08; Admin Dose 10 MG; Start 09/03/16 at 13:00 Pantoprazole (Protonix Tab) 40 mg DAILY@06 PO Last administered on 09/04/16 06 :22; Admin Dose 40 MG; Start 09/04/16 at 06:00 Alprazolam (Xanax) 0.5 mg Q6H PRN PO ANXIETY; Start 09/03/16 at 19:30 NIC SAHU September 04, 2016 12:21
--- NOTE | 2016-09-04 16:45 | CONS ---
Date/Time of Note Date/Time of Note DATE: 09/04/16 TIME: 16:42 Assessment/Plan Assessment/Plan Additional Assessment/Plan CAD s/p PTCA stenting HTN Dyslipidemia Hypothyroid Anemia Asymptomatic Hemodynamically stable Continue Metoprolol Continue ASA and Plavix Continue Lisinopril Continue Imdur Continue Lipitor Discontinue Ranexa Consultation Date/Type/Reason Admit Date/Time September 03, 2016 at 10:41 Eyes: no complaints ENT: no complaints Respiratory: no complaints Cardiovascular: chest pain Gastrointestinal: no complaints Genitourinary: no complaints Musculoskeletal: no complaints Skin: no complaints Neurologic: no complaints Endocrine: no complaints Lymphatic: no complaints Psychological: no complaints Immunologic: no complaints Social History Smoking Status: Never smoker Exam/Review of Systems Vital Signs Vitals Vital Signs Date Time Temp Pulse Resp B/P Pulse Ox O2 Delivery O2 Flow Rate FiO2 09/04/16 16:09 64 09/04/16 15:25 98.3 17 110/65 98 09/04/16 01:40 Room Air Intake and Output 09/03/16 09/03/16 09/04/16 15:00 23:00 07:00 Intake Total 760 ml 540 ml 250 ml Balance 760 ml 540 ml 250 ml Exam Constitutional: alert, oriented, well developed Head: atraumatic, normocephalic Neck: non-tender, supple Respiratory: clear to auscultation Cardiovascular: regular rate and rhythm Gastrointestinal: nl liver, spleen, non-tender, soft Extremities: normal pulses Results Result Diagram: 09/04/16 1005 09/04/16 1005 Results 24 hrs Laboratory Tests Test 09/04/16 10:05 White Blood Count 7.1 Red Blood Count 4.23 Hemoglobin 9.1 L Hematocrit 31.0 L Mean Corpuscular Volume 73.3 L Mean Corpuscular Hemoglobin 21.5 L Mean Corpuscular Hemoglobin Concent 29.4 L Red Cell Distribution Width 20.2 H Platelet Count 321 Mean Platelet Volume 9.6 Neutrophils % 70.1 Lymphocytes % 21.9 Monocytes % 4.7 Eosinophils % 2.7 Basophils % 0.3 Nucleated Red Blood Cells % 0.0 Neutrophils # 5.0 Lymphocytes # 1.6 Monocytes # 0.3 Eosinophils # 0.2 Basophils # 0.0 Nucleated Red Blood Cells # 0.0 Sodium Level 140 Potassium Level 3.9 Chloride Level 105 Carbon Dioxide Level 22 Anion Gap 17 H Blood Urea Nitrogen 13 Creatinine 0.70 Glucose Level 148 # Calcium Level 8.9 Medications Medications Current Medications Sodium Chloride (1/2 NS) 1,000 ml @ 0 mls/hr Q0M IV ; Start 09/01/16 at 08:00 Aspirin (Ecotrin) 325 mg DAILY PO Last administered on 09/04/16 09:09; Admin Dose 325 MG; Start 09/02/16 at 09:00 Clopidogrel Bisulfate (plaVIX) 75 mg DAILY PO Last administered on 09/04/16 09 :09; Admin Dose 75 MG; Start 09/02/16 at 09:00 Acetaminophen (Tylenol Tab) 650 mg Q4H PRN PO NON-CARDIAC PAIN LEVEL 1-3 Last administered on 09/02/16 11:21; Admin Dose 650 MG; Start 09/01/16 at 12:30 Oxycodone/ Acetaminophen (Percocet (5/ 325)) 1 tab Q4H PRN PO REPORTED NON- CARDIAC PAIN 4-7; Start 09/01/16 at 12:30 Morphine Sulfate (morphine) 1 mg Q1H PRN IV PAIN NOT RELIEVED BY OTHERS; Start 09/01/16 at 12:30 Al Hydrox/Mg Hydrox/Simethicone (Mag-Al Plus) 30 ml Q4H PRN PO GASTROINTESTINAL UPSET; Start 09/01/16 at 12:30 Ondansetron HCl (Zofran Inj) 4 mg Q4H PRN IV NAUSEA AND/OR VOMITING; Start at 12:30 Acetazolamide (Diamox Sequels) 500 mg DAILY PO Last administered on 09/04/16 09:08; Admin Dose 500 MG; Start 09/02/16 at 09:00 Escitalopram Oxalate (Lexapro) 20 mg DAILY PO Last administered on 09/04/16 09 :08; Admin Dose 20 MG; Start 09/02/16 at 09:00 Ferrous Sulfate (Ferrous Sulfate (Ec)) 325 mg DAILY PO ; Start 09/02/16 at 09:00 Ranolazine (Ranexa) 1,000 mg Q12 PO Last administered on 09/04/16 09:07; Admin Dose 1,000 MG; Start 09/01/16 at 21:00 Ropinirole HCl (Requip) 1.5 mg HS PO Last administered on 09/03/16 21:01; Admin Dose 1.5 MG; Start 09/01/16 at 21:00 Atorvastatin Calcium (Lipitor) 40 mg HS NGT Last administered on 09/03/16 21: 00; Admin Dose 40 MG; Start 09/01/16 at 21:00 Metoprolol Tartrate (Lopressor) 12.5 mg BID PO Last administered on 09/04/16 09:09; Admin Dose 12.5 MG; Start 09/02/16 at 21:00 Lisinopril (Zestril) 5 mg DAILY PO Last administered on 09/04/16 09:09; Admin Dose 5 MG; Start 09/04/16 at 09:00 Isosorbide Dinitrate (Isordil) 10 mg TID PO Last administered on 09/04/16 13: 12; Admin Dose 10 MG; Start 09/03/16 at 13:00 Pantoprazole (Protonix Tab) 40 mg DAILY@06 PO Last administered on 09/04/16 06 :22; Admin Dose 40 MG; Start 09/04/16 at 06:00 Alprazolam (Xanax) 0.5 mg Q6H PRN PO ANXIETY; Start 09/03/16 at 19:30 CLAUDIA ALVAREZ M.D. September 04, 2016 16:45
[2016-09-04] MEDS ORDERED: CLOP75TA27 PO (18:02)
[2016-09-04] MEDS ORDERED: ASPI325T32 PO (18:02)
[2016-09-04] MEDS ORDERED: CLOPIDOGREL 75 MG TAB PO ONE (18:30)
--- NOTE | 2016-09-09 11:46 | DS ---
Date/Time of Note Date/Time of Note DATE: 09/09/16 TIME: 11:44 Discharge Summary Admission/Discharge Info Admit Date/Time September 01, 2016 at 12:04 Discharge Date/Time September 04, 2016 at 18:50 Final Diagnosis 1) chest pain 2) coronary artery disease Consults cardiology Procedures Cardiac catheterization with PCI and stent Hx of Present Illness Patient with coronary artery disease comes in with chest pain. Hospital Course Patient with coronary artery disease comes in with chest pain. Patient was found to have coronary artery stenosis. Patient underwent PCI with stent placement 1. Coronary artery disease status post percutaneous transluminal coronary angioplasty, stent to ramus and left anterior descending. Dr. Beasley is following in cardiology consultation. Continue aspirin and Plavix. Okay to monitor patient on telemetry floor. 2. Hypertension. Continue lisinopril and metoprolol. 3. Hypothyroidism. Continue Synthroid. 4. Obesity with body mass index of 47.3. 5. Anemia. Continue to monitor hemoglobin and hematocrit. Continue iron supplements. 6. Hyperlipidemia. Continue statins. 7. We will continue Protonix for peptic ulcer disease prophylaxis. Further recommendations based on clinical course. Home Meds Reported Medications Aspirin* (Aspirin* EC) 325 Mg Tab, 325 MG PO DAILY, TAB 09/04/16 Clopidogrel Bisulfate (Clopidogrel) 75 Mg Tablet, 75 MG PO DAILY, #30 TAB 09/04/16 Isosorbide Mononitrate* (Isosorbide Mononitrate*) 30 Mg Tab.er.24h, 30 MG PO DAILY, TAB 09/01/16 Furosemide* (Lasix*) 20 Mg Tablet, 20 MG PO DAILY, TAB 09/01/16 Acetazolamide* (Acetazolamide* ER) 500 Mg Capsule.er, 500 MG PO DAILY, #30 CAP 09/01/16 Temazepam* (Restoril*) 15 Mg Capsule, 15 MG PO HS Y for INSOMNIA, CAP 09/01/16 Ferrous Sulfate* (Ferrous Sulfate*) 325 Mg Tabec, 325 MG PO DAILY, TAB 09/01/16 Ropinirole Hcl* (Requip*) 1 Mg Tablet, 1.5 MG PO HS, TAB 09/01/16 Metoprolol Tartrate* (Lopressor*) 25 Mg Tab, 25 MG PO QHS, #60 TAB 09/01/16 Levothyroxine Sodium* (Levoxyl*) 100 Mcg Tablet, 100 MCG PO BEFORE BREAKFAST, # 30 TAB 09/01/16 Escitalopram Oxalate* (Lexapro*) 20 Mg Tablet, 20 MG PO DAILY, #30 TAB 09/01/16 Amlodipine Besylate* (Amlodipine Besylate*) 10 Mg Tablet, 10 MG PO DAILY, #30 TAB 09/01/16 Lisinopril* (Lisinopril*) 40 Mg Tablet, 40 MG PO DAILY, #30 TAB 09/01/16 Discontinued Reported Medications Ranolazine* (Ranexa*) 1,000 Mg Tab.sr.12h, 1000 MG PO Q12, TAB 09/01/16 Primary Care Provider NIC Marquez Sep 09, 2016 11:46
== END 2016-09-04 18:50 | disposition home or self-care (01) ==
LOC: SDS 06:26 → ICU 12:04 → INTOOBSV 09-03 10:41 → OBSVTOIN 09-03 10:41 → TEL 09-04 01:30
PROVIDERS: ADMIT Internal Medicine; ATTEND Internal Medicine
DX: I25.10 Atherosclerotic heart disease of native coronary artery without angina pectoris (principal); I10 Essential (primary) hypertension; E03.9 Hypothyroidism, unspecified; D64.9 Anemia, unspecified; E78.5 Hyperlipidemia, unspecified; E66.01 Morbid (severe) obesity due to excess calories; Z68.42 Body mass index [BMI] 45.0-49.9, adult; R51 Headache
CPT/HCPCS: 71010; 80048; 80053; 80061; 82550; 82553; 82962; 84484; 85025; 85610; 85730; 87081; 93005; 93458; C1725; C1769; C1874; C1887; C9600; C9601; J0583; J1644; J2250; J3010; Q9967; Z7500; Z7610; G0378

== ENCOUNTER 2016-09-23 23:42 | Observation (INO) | payer OTHER ==
[~2016-09-23] VITALS: Ht 160 cm; Wt 116.0 kg
[~2016-09-23 23:42] MED LIST: ACET500C PO; AMLO-147 PO; ASPI325T32 PO; CLOP75TA27 PO; ESCI20TA PO; FER325 PO; FURO-110 PO; ISOS30TA5 PO; LEVO100T82 PO; LISI40TA9 PO; METO-448 PO; ROPI1TAB24 PO; TEMA15CA6 PO
[2016-09-23 23:49] VITALS: Ht 160 cm; Wt 116.0 kg
--- NOTE | 2016-09-23 23:58 | ERA ---
ER Documentation Chief Complaint Date/Time DATE: 09/23/16 TIME: 23:57 Chief Complaint CP x 24hrs, worse since 1400, unreleived by NTG/asa. 4stents 09/01/16 HPI The patient is a 40-year-old female, presenting to the ER because of left-sided chest pain radiating down to her left arm intermittently for 1 day. The chest pain came back today about 2 PM, she took 3 nitroglycerin sublingual every 5 minutes 3 without response therefore she called 911. She was treated with aspirin 160 mg p.o. and 2 nitroglycerin spray by the finisher denture with some response. She has similar symptom where she had stent PCI in August 2016. She denies fever, chills, syncope, near syncope, diaphoresis, dyspnea, abdominal pain, vomiting, dysuria. she does not smoke nor drink Past medical history: CAD, hypertension, dyslipidemia Past surgical history: Stent PCI, lap band and removal of lap band 2 years ago ROS All systems reviewed and are negative except as per history of present illness. Medications Home Meds Reported Medications Nitroglycerin* (Nitrostat*) 0.4 Mg Tab.subl, 0.4 MG SL Q5MIN Y for CHEST PAIN, BOTTLE 09/24/16 Aspirin* (Aspirin* EC) 325 Mg Tab, 325 MG PO DAILY, TAB 09/04/16 Clopidogrel Bisulfate (Clopidogrel) 75 Mg Tablet, 75 MG PO DAILY, #30 TAB 09/04/16 Isosorbide Mononitrate* (Isosorbide Mononitrate*) 30 Mg Tab.er.24h, 30 MG PO DAILY, TAB 09/01/16 Furosemide* (Lasix*) 20 Mg Tablet, 20 MG PO DAILY, TAB 09/01/16 Acetazolamide* (Acetazolamide* ER) 500 Mg Capsule.er, 500 MG PO DAILY, #30 CAP 09/01/16 Temazepam* (Restoril*) 15 Mg Capsule, 15 MG PO HS Y for INSOMNIA, CAP 09/01/16 Ropinirole Hcl* (Requip*) 1 Mg Tablet, 1.5 MG PO HS, TAB 09/01/16 Metoprolol Tartrate* (Lopressor*) 25 Mg Tab, 25 MG PO QHS, #60 TAB 09/01/16 Levothyroxine Sodium* (Levoxyl*) 100 Mcg Tablet, 100 MCG PO BEFORE BREAKFAST, # 30 TAB 09/01/16 Escitalopram Oxalate* (Lexapro*) 20 Mg Tablet, 20 MG PO DAILY, #30 TAB 09/01/16 Amlodipine Besylate* (Amlodipine Besylate*) 10 Mg Tablet, 10 MG PO DAILY, #30 TAB 09/01/16 Lisinopril* (Lisinopril*) 40 Mg Tablet, 40 MG PO DAILY, #30 TAB 09/01/16 Discontinued Reported Medications Ferrous Sulfate* (Ferrous Sulfate*) 325 Mg Tabec, 325 MG PO DAILY, TAB 09/01/16 Allergies Allergies: Coded Allergies: No Known Allergy (Unverified , 09/24/16) PMhx/Soc History of Surgery: Yes (LAP BAND PLACEMENT 2008, LAP BAND REMOVED 2009) Anesthesia Reaction: No Hx Neurological Disorder: No Hx Respiratory Disorders: No Hx Cardiac Disorders: Yes (HTN) Hx Psychiatric Problems: Yes (DEPRESSION, ANXIETY) Hx Miscellaneous Medical Probl: Yes (MORBID OBESITY) Hx Alcohol Use: No Hx Substance Use: No Hx Tobacco Use: No Physical Exam Vitals Vital Signs Date Time Temp Pulse Resp B/P Pulse Ox O2 Delivery O2 Flow Rate FiO2 09/24/16 00:45 71 18 102/64 99 Room Air 09/23/16 23:49 97.8 80 18 136/93 98 Physical Exam Const: No acute distress. Head: Atraumatic. Eyes: Normal Conjunctiva. ENT: Normal External Ears, Nose and Mouth. Neck: Full range of motion. No meningismus. Resp: Clear to auscultation bilaterally. Cardio: Regular rate and rhythm. Abd: Soft, non distended, normal bowel sounds, non tender. Skin: No petechiae or rashes. Back: No midline or flank tenderness. Ext: No cyanosis, or edema. Neur: Awake and alert. No focal deficit Psych: Normal Mood and Affect. Result Diagram: 09/24/16 0003 09/24/16 0004 Results 24 hrs Laboratory Tests Test 09/24/16 00:03 09/24/16 00:04 White Blood Count 8.610^3/ul Red Blood Count 4.5510^6/ul Hemoglobin 9.7g/dl Hematocrit 33.4% Mean Corpuscular Volume 73.4fl Mean Corpuscular Hemoglobin 21.3pg Mean Corpuscular Hemoglobin Concent 29.0g/dl Red Cell Distribution Width 18.9% Platelet Count 13964^3/UL Mean Platelet Volume 9.5fl Neutrophils % 50.3% Lymphocytes % 39.4% Monocytes % 7.1% Eosinophils % 2.4% Basophils % 0.7% Nucleated Red Blood Cells % 0.0/100WBC Neutrophils # 4.310^3/ul Lymphocytes # 3.410^3/ul Monocytes # 0.610^3/ul Eosinophils # 0.210^3/ul Basophils # 0.110^3/ul Nucleated Red Blood Cells # 0.010^3/ul Prothrombin Time 13.9Sec Prothrombin Time Ratio 1.1 INR International Normalized Ratio 1.07 Activated Partial Thromboplast Time 28.1Sec D-Dimer 520.34ng/ml D-Dimer Comment Sodium Level 146mmol/L Potassium Level 3.8mmol/L Chloride Level 113mmol/L Carbon Dioxide Level 24mmol/L Anion Gap 13 Blood Urea Nitrogen 13mg/dl Creatinine 0.94mg/dl Glucose Level 88mg/dl Calcium Level 9.2mg/dl Troponin I < 0.012ng/ml Current Medications Medications (Trade) Dose Ordered Sig/Nitza Route PRN Reason Start Time Stop Time Status Last Admin Dose Admin Aspirin (Aspirin) 162 mg ONCE STAT PO 09/24/16 00:03 09/24/16 00:07 DC 09/24/16 00:37 Nitroglycerin (Nitroglycerin 2% Oint) 1 inch ONCE STAT TD 09/24/16 00:03 09/24/16 00:07 DC 09/24/16 00:40 IV Flush 10 ml 10 ml STK-MED ONCE .ROUTE 09/24/16 01:55 09/24/16 01:56 DC 09/24/16 01:58 Sodium Chloride 100 ml @ ud STK-MED ONCE .ROUTE 09/24/16 01:55 09/24/16 01:56 DC 09/24/16 01:58 Iohexol (Omnipaque) 100 ml @ ud STK-MED ONCE .ROUTE 09/24/16 01:55 09/24/16 01:56 DC 09/24/16 01:58 Procedures/[place] [id number] Radiology Main Line: [phone] DIAGNOSTIC IMAGING REPORT Patient: EMILY SANTAMARIA : 1975 Age: 40 Sex: F MR #: [id number] DOS: 09/24/16 0003 Ordering MD: KAYLYN DURAN MD Location: E/R Room/Bed: PROCEDURE: XR Chest. CLINICAL INDICATION: Chest pain TECHNIQUE: AP Portable chest. COMPARISON: No pertinent prior examinations were submitted for comparison. FINDINGS: The cardiomediastinal silhouette is normal. The lungs are clear. The osseous structures are unremarkable. IMPRESSION: No acute findings. RPTAT: HIKT .Clovis Campoverde MD, MD Date Time Electronically viewed and signed by .Clovis Campoverde MD, on 09/24/2016 01:28 .T/ CC: KAYLYN DURAN MD [place] [id number] Radiology Main Line: [phone] DIAGNOSTIC IMAGING REPORT Patient: EMILY SANTAMARIA : 1975 Age: 40 Sex: F MR #: [id number] DOS: 09/24/16 0122 Ordering MD: KAYLYN DURAN MD Location: E/R Room/Bed: PROCEDURE: CT angiogram of the chest with contrast. CLINICAL INDICATION: Chest pain. TECHNIQUE: CT angiogram of the chest was obtained using a multi-detector high -resolution CT. Contiguous axial images were obtained during the dynamic injection of 90 cc of Omnipaque 350 intravenous contrast. Coronal and sagittal reformatted images were obtained. 3-D reformatted images were also obtained. Images were reviewed on a PACS workstation. One or more of the following dose reduction techniques were used: - Automated exposure control. - Adjustment of the mA and/or kV according to patient size. - Use of iterative reconstruction technique. Exam CTD/vol = 20.04 mGy. Total exam DLP = 792.84 mGy-cm. COMPARISON: None. FINDINGS: The main pulmonary artery followed to the segmental divisions are well opacified. There is no filling defect or evidence of pulmonary embolism. The heart is normal in size. There is no pericardial thickening or effusion. The aorta is of normal course and caliber without evidence of aneurysm or dissection. There is no evidence of chest wall mass. The visualized thyroid is unremarkable. There are no enlarged axillary lymph nodes. There are no enlarged mediastinal or hilar lymph nodes by CT criteria. There is no parenchymal nodule or consolidation. There is no pleural effusion. The central tracheobronchial tree is within normal limits. There is a small hiatal hernia. Limited evaluation of the upper abdomen is unremarkable. IMPRESSION: No evidence of pulmonary embolism or aortic dissection. Small hiatal hernia. .Dannie Rice MD, Date Time Electronically viewed and signed by .Dannie Rice MD, MD on 09/24/2016 02:43 .T/ CC: KAYLYN DURAN MD EKG: Read by emergency physician Rate/Rhythm: Normal Sinus Rhythm 72 beats/min QRS, ST, T-waves: No ST elevation, no T inversion, low voltage, prolonged QT Impression: Abnormal EKG MEDICAL MAKING DECISION: The patient is a 40-year-old female with multiple cardiac risk factors, presented with acute chest pain that is concerning for ACS. She was treated with aspirin 162 mg p.o., one inch of nitroglycerin ointment with good response. The differential diagnoses considered include but are not limited to acute coronary syndrome, acute myocardial infarction, pericarditis, pulmonary embolism , aortic dissection, pneumonia, pleural effusion, pneumothorax, GERD, chest wall pain. Departure Diagnosis: Primary Impression: Chest pain Additional Impression: Anemia Condition: Stable Comments I discussed the findings with the patient. I discussed the patient with the on- call hospitalist Dr. Tate who was made aware of the lab, the treatment, the patient condition. The patient is admitted to telemetry at 2:30 AM KAYLYN DURAN MD Sep 23, 2016 23:58
[2016-09-24] VITALS (11 sets, daily range): BP systolic 91–154; BP diastolic 42–85; PULSE 65–83; RESP 16–20
[2016-09-24] MEDS ORDERED: ASPIRIN 81 MG TAB PO STA (00:03)
[2016-09-24] MEDS ORDERED: NITROGLYCERIN 2% 1 GM OINT PKT TD STA (00:03)
[2016-09-24 00:17] LABS: ADD SCAN DIFF NO; BASOPHIL # 0.1 10^3/ul (0.0-0.1); BASOPHILS % 0.7 % (0.0-2.0); EOSINOPHILS # 0.2 10^3/ul (0.0-0.5); EOSINOPHILS % 2.4 % (0.0-7.0); HEMATOCRIT 33.4 % (37.0-47.0); HEMOGLOBIN 9.7 g/dl (12.0-16.0); LYMPHOCYTES # 3.4 10^3/ul (0.8-2.9); LYMPHOCYTES % 39.4 % (15.0-51.0); MEAN CORPUSCULAR HEMOGLOBIN 21.3 pg (29.0-33.0); MEAN CORPUSCULAR VOLUME 73.4 fl (82.0-101.0); MEAN PLATELET VOLUME 9.5 fl (7.4-10.4); MONOCYTE # 0.6 10^3/ul (0.3-0.9); MONOCYTES % 7.1 % (0.0-11.0); NEUTROPHIL # 4.3 10^3/ul (1.6-7.5); NEUTROPHILS % 50.3 % (39.0-77.0); PLATELET COUNT 397 10^3/UL (140-415); RED BLOOD COUNT 4.55 10^6/ul (4.20-5.40); RED CELL DISTRIBUTION WIDTH 18.9 % (11.5-14.5); WHITE BLOOD COUNT 8.6 10^3/ul (4.8-10.8)
[2016-09-24 00:35] LABS: ANION GAP 13 (8-16); BLOOD UREA NITROGEN 13 mg/dl (7-20); CALCIUM 9.2 mg/dl (8.4-10.2); CARBON DIOXIDE 24 mmol/L (21-31); CHLORIDE 113 mmol/L (97-110); CREATININE 0.94 mg/dl (0.44-1.00); GLUCOSE 88 mg/dl (70-220); POTASSIUM 3.8 mmol/L (3.5-5.1); SODIUM 146 mmol/L (135-144)
[2016-09-24 00:39] LABS: INR 1.07; PROTIME 13.9 Sec (12.2-14.2); PT RATIO 1.1
[2016-09-24 00:40] LABS: PARTIAL THROMBOPLASTIN TIME 28.1 Sec (25.0-35.0)
[2016-09-24 00:42] LABS: D-DIMER 520.34 ng/ml (<460)
[2016-09-24 00:48] LABS: TROPONIN-I < 0.012 ng/ml (0.00-0.12)
--- NOTE | 2016-09-24 01:29 | RADRPT ---
PROCEDURE: XR Chest. CLINICAL INDICATION: Chest pain TECHNIQUE: AP Portable chest. COMPARISON: No pertinent prior examinations were submitted for comparison. FINDINGS: The cardiomediastinal silhouette is normal. The lungs are clear. The osseous structures are unrema rkable. IMPRESSION: No acute findings. RPTAT: HIKT .Clovis Campoverde MD, MD Date Time Electronically viewed and signed by .Clovis Campoverde MD, MD on 09/24/2016 01:28 .T/
[2016-09-24] MEDS ORDERED: IOHEXOL 100 ML ONE (01:55)
[2016-09-24] MEDS ORDERED: SOD CHLORIDE 0.9% 100 ML ONE (01:55)
--- NOTE | 2016-09-24 02:44 | RADRPT ---
PROCEDURE: CT angiogram of the chest with contrast. CLINICAL INDICATION: Chest pain. TECHNIQUE: CT angiogram of the chest was obtained using a multi-detector high-resolution CT. Con tiguous axial images were obtained during the dynamic injection of 90 cc of Omnipaque 350 intravenou s contrast. Coronal and sagittal reformatted images were obtained. 3-D reformatted images were als o obtained. Images were reviewed on a PACS workstation. One or more of the following dose reduction techniques were used: - Automated exposure control. - Adjustment of the mA and/or kV according to patient size. - Use of iterative reconstruction technique. Exam CTD/vol = 20.04 mGy. Total exam DLP = 792.84 mGy-cm. COMPARISON: None. FINDINGS: The main pulmonary artery followed to the segmental divisions are well opacified. There is no filli ng defect or evidence of pulmonary embolism. The heart is normal in size. There is no pericardial thickening or effusion. The aorta is of normal course and caliber without evidence of aneurysm or d issection. There is no evidence of chest wall mass. The visualized thyroid is unremarkable. There are no enla rged axillary lymph nodes. There are no enlarged mediastinal or hilar lymph nodes by CT criteria. There is no parenchymal nodule or consolidation. There is no pleural effusion. The central tracheo bronchial tree is within normal limits. There is a small hiatal hernia. Limited evaluation of the upper abdomen is unremarkable. IMPRESSION: No evidence of pulmonary embolism or aortic dissection. Small hiatal hernia. .Dannie Rice MD, MD Date Time Electronically viewed and signed by .Dannie Rice MD, MD on 09/24/2016 02:43 .T/
[2016-09-24] MEDS ORDERED: NON-FORMULARY/PATIENT OWN MED (Temazepam* (Restoril*) 15 MG) PO PRN (03:00)
[2016-09-24] MEDS ORDERED: NACL 0.9% 3 ML SYG IV SCH (03:00)
[2016-09-24] MEDS ORDERED: morphine 2 MG INJ IV PRN (03:00)
[2016-09-24] MEDS ORDERED: NIT4 SL (03:13)
[2016-09-24] MEDS: SOD CHLORIDE 0.9% 1,000 ML IV SCH ×2 (06:30→19:30)
[2016-09-24] MEDS: LEVOTHYROXINE 100 MCG TAB PO SCH (06:42)
[2016-09-24 06:54] LABS: CREATINE KINASE 59 IU/L (23-200)
[2016-09-24 07:07] LABS: CK-MB 0.46 ng/ml (0.0-2.4)
[2016-09-24 07:19] LABS: TROPONIN-I < 0.012 ng/ml (0.00-0.12)
[2016-09-24] MEDS ORDERED: TEMAZEPAM 15 MG CAP PO PRN (07:30)
[2016-09-24] MEDS ORDERED: LISINOPRIL 20 MG TAB PO SCH (09:00)
[2016-09-24] MEDS: FUROSEMIDE 20 MG TAB PO SCH (09:00)
[2016-09-24] MEDS ORDERED: ISOSORBIDE MONONITRATE(SR)30 MG TAB PO SCH (09:00)
[2016-09-24] MEDS ORDERED: AMLODIPINE 10 MG TAB PO SCH (09:00)
[2016-09-24] MEDS: ACETAZOLAMIDE (SR) 500 MG CAP PO SCH (09:54)
[2016-09-24] MEDS: FERROUS SULFATE (EC) 325 MG TAB PO SCH (09:54)
[2016-09-24] MEDS: ESCITALOPRAM 10 MG TAB PO SCH (09:54)
[2016-09-24] MEDS: CLOPIDOGREL 75 MG TAB PO SCH (09:55)
[2016-09-24] MEDS: ASPIRIN (EC) 325 MG TAB PO SCH (09:55)
[2016-09-24] MEDS: ENOXAPARIN 40 MG/0.4 ML SYG SC SCH (10:18)
--- NOTE | 2016-09-24 12:18 | HP ---
DATE OF ADMISSION: 09/24/2016 CHIEF COMPLAINT: Chest pain, which was unrelieved by nitroglycerin and aspirin. HISTORY OF PRESENT ILLNESS: The patient is a 40-year-old female with a history of coronary artery di sease, status post recent percutaneous transluminal coronary angioplasty and stent placement by Dr. Beasley in August of 2016. Patient is also with a history of hypertension, hypothyroidism and obesity. The patient developed chest pain last night, with radiation down to her left upper extremity and n merlin. The patient called Dr. Beasley' office and was taking 2 nitroglycerin every 5 minutes, without significant improvement. After the patient called 911, the paramedics took the patient to [facility]. The patient denied any fever, denied any chills. Patient does not state any exacerbating or alleviating factors. Patient denies any fevers, chills, denies any bilateral lower extremity swelling. Denies any shortness of breath. In evaluation in the emergency room the patient 's troponin was negative x2. The patient was given nitroglycerin and aspirin. The patient underwen t a CT scan of the chest with contrast, which had no evidence of pulmonary embolism or aortic dissec tion. Chest x-ray is unremarkable. The patient is admitted for further evaluation and management o n the telemetry floor. PAST MEDICAL HISTORY: Per HPI. PAST SURGICAL HISTORY: Patient is status post PCI. The patient is status post laparoscopic band pl acement and removal 2 years ago. FAMILY HISTORY: Noncontributory. SOCIAL HISTORY: The patient works as an food and beverage manager. The patient denies any tobacco use, roseanna es any alcohol use, denies any illicit drug use. ALLERGIES: NO KNOWN ALLERGIES. MEDICATIONS ON ADMISSION: 1. Nitrostat. 2. Aspirin. 3. Plavix. 4. Imdur. 5. Lasix. 6. . 7. Restoril. 8. Requip. 9. Lopressor. 10. Levoxyl. 11. Lexapro. 12. Amlodipine. 13. Lisinopril. REVIEW OF SYSTEMS: A 12-point review of systems was negative unless mentioned in the HPI. PHYSICAL ASSESSMENT: GENERAL: Well-developed, obese female, who currently is awake, alert, in no acute distress. VITAL SIGNS: Temperature is 98.0, pulse is 73, blood pressure 109/56, respiratory rate 20, oxygen s aturation 96% on room air. ENT: Head is atraumatic, normocephalic. Pupils are equal, round, reactive to light and accommodati on. Oral mucosa is pink and moist. NECK: Supple. No cervical lymphadenopathy, no thyromegaly. CHEST: Lungs clear bilaterally. There are no rhonchi, wheezes or rales noted. CARDIOVASCULAR: Normal S1, S2. No murmurs, gallops or clicks noted. ABDOMEN: Protuberant, soft, nondistended, nontender. Bowel sounds present. There is no rebound ten derness, no guarding. EXTREMITIES: No edema. Pulses are equal bilaterally at 2+. SKIN: There is no rash or petechiae noted. NEUROLOGIC: The patient is awake, alert and oriented x4. No focal deficits noted. Motor strength is 5/5 in all extremities. LABORATORY DATA: On admission CBC, white blood cells 8.6, hemoglobin 9.7, hematocrit 33.4, platelet s 397. Chemistry: Sodium is 146, potassium 3.8, chloride 115, carbon dioxide 24, anion gap 13, BUN 15, creatinine 0.94, glucose 88, calcium is 9.2. PT is 13.9, INR is 1.078, PTT is 28.1. ASSESSMENT AND PLAN: 1. Chest pain. Rule out acute coronary syndrome. Will obtain a 12-lead EKG and cardiac enzymes q. 8h. x3. Dr. Beasley will be following the patient in cardiology consultation. Continue aspirin and Plavix. 2. Coronary artery disease and recent stent placement. 3. Hypothyroidism. 4. Hypertension. 5. Morbid obesity. 6. Anemia. 7. Hyperlipidemia. 8. Perimenopause. PLAN: Continue the patient's home medication. Continue morphine p.r.n. for pain and Zofran p.r.n. f or nausea. Lovenox for deep venous thrombosis prophylaxis and Pepcid for peptic ulcer disease proph ylaxis. Continue telemetry monitoring. Further recommendations based on clinical course. Plan of care discussed with Dr. Gates. Dictated By: ROGER MARKS BUSINESS ADMINISTRATION PROGRAM CHAIR for CAESAR GATES MD, SR/NTS Conf#: [id number] DID#: [id number]
[2016-09-24 12:44] LABS: CREATINE KINASE 57 IU/L (23-200)
[2016-09-24 13:02] LABS: TROPONIN-I < 0.012 ng/ml (0.00-0.12)
--- NOTE | 2016-09-24 19:11 | CONS ---
DATE OF ADMISSION: 09/24/2016 DATE OF CONSULTATION: 09/24/2016 TYPE OF CONSULTATION: Cardiology REASON FOR CONSULTATION: Chest pain, assess for acute coronary syndrome. REQUESTING PHYSICIAN: Caesar Lino MD HISTORY OF PRESENT ILLNESS: Ms. Cohen is a 40-year-old female with history of coronary artery di sease, status post PTCA and stent placement to the ramus x2, circumflex x1 and LAD x1 in 08/2016, hy pertension, dyslipidemia, hypothyroidism, who initially presented with complaints of recurrent subst ernal chest pain. Upon arrival, temperature of 97.8, blood pressure 136/93, pulse 80, respiratory r ate 18, saturating 98%. The patient's labs revealed a white count 8.6, hemoglobin 9.7, platelet cou nt of 397. Sodium 146, potassium 3.8, creatinine 0.9, BUN of 13. Troponin negative. INR of 1.0. The patient underwent a chest x-ray revealing no acute cardiopulmonary abnormalities. The patient u nderwent CT/CTA revealing no evidence of pulmonary embolism or aortic dissection. Small hiatal david ia. The patient does not have an electrocardiogram in the chart for my review at this time. The kurt pearson subsequently admitted to the floor and since being on the floor has continued to have mild sub sternal chest pain. PAST MEDICAL HISTORY: As above in HPI. MEDICATIONS CURRENTLY IN HOSPITAL: 1. Lopressor 25 mg at bedtime. 2. Diamox 5 mg daily. 3. Norvasc 10 mg daily. 4. Aspirin 325 mg daily. 5. Plavix 75 mg daily. 6. Lexapro. 7. Ferrous sulfate 325 mg daily. 8. Imdur 30 mg daily. 9. Zestril 40 mg daily. 10. Lovenox 40 mg subcutaneous daily. 11. Restoril. 12. Synthroid 100 mcg daily. 13. IV fluid hydration at 60 mL/hour. ALLERGIES: NO KNOWN DRUG ALLERGIES. SOCIAL HISTORY: No tobacco, ETOH or illicit drug use. FAMILY HISTORY: No history of sudden cardiac or early CAD. REVIEW OF SYSTEMS: As above in HPI. CONSTITUTIONAL: No fevers, chills. PULMONARY: Shortness of breath. CARDIOVASCULAR: Chest pain. GASTROINTESTINAL: No vomiting. GENITOURINARY: No hematuria. MUSCULOSKELETAL: Degenerative joint disease. PSYCHIATRIC: The patient denies depression. NEUROLOGIC: No documented history of CVA. PHYSICAL EXAMINATION VITAL SIGNS: Temperature 97.8, blood pressure 114/51, pulse 77, respirations 19, saturating 97%. GENERAL: The patient is alert, awake, in no acute distress. NECK: JVP approximately 8 to 9 cm of water. CHEST: Fair air movement throughout. HEART: Regular rate and rhythm. Normal S1, S2, I/ systolic murmur, nondisplaced PMI. ABDOMEN: Positive bowel sounds, soft. EXTREMITIES: No edema, 1+ pulses bilaterally, posterior tibial. LABORATORY DATA: Since admit today, the patient had 3 negative troponins, ruling out for acute myoc ardial infarction. No further labs for my review at this time. IMAGING STUDIES: As above in HPI. No further imaging studies for my review at this time. ECG: No electrocardiograms for my review at this time. IMPRESSION: 1. Chest pain, assess for acute coronary syndrome. 2. History of percutaneous transluminal coronary angioplasty and stent placement 08/2016 to circumf lesley, left anterior descending and ramus. 3. Hypertension. 4. Dyslipidemia. 5. Hypothyroidism. RECOMMENDATIONS: 1. At this time, would maintain the patient on telemetry monitoring to follow rhythm and rate contr ol closely. 2. Would check serial EKGs to assess for any significant ongoing changes, and troponin to ens ure that the patient's chest pain is not due to acute coronary syndrome, acute myocardial infarction . 3. Continue the patient's dual antiplatelet therapy with aspirin and Plavix for stent patency. 4. Check a fasting lipid panel for general risk stratification and initiate lipid-lowering medicati on as necessary. 5. Continue the patient's current Norvasc and beta jas but change the patient's beta jas to b.i.d. dosing given the half-life of medication to improve overall efficacy. 6. Continue the patient's Imdur and will decrease the dose of the patient's Zestril to allow the pa tient to better tolerate medications. 7. If the patient's chest pain improves and the patient's troponins continue to remain negative, th en patient will be reasonable for discharge with further outpatient followup. Thank you for allowing me to take part in the care of this patient. I will continue to follow along very closely with you. Further recommendations will be made as the patient progresses through her inpatient hospital clinical course. Dictated By: ILENE WEINSTEIN/MAGALY NULL: 09/24/2016 18:16:50 Conf#: [id number] [facility]#: [id number] CC: CAESAR LINO MD;*End*
--- NOTE | 2016-09-24 20:31 | RADRPT ---
Echocardiogram Report Patient Name: EMILY SANTAMARIA Gender: Female Date: 1975 Study Date: 24-Sep-2016 Industrial Tractor Driver: Adelfo Perez [facility] Location: [facility] Ref. Physician: KAITLIN FUNG Quality: Good Procedures: Transthoracic echocardiogram with complete 2D, M-Mode, and doppler examination. Indications: Chest Pain. 2D/M Mode Doppler Measurement Value Normal Ranges Measurement Value Normal Ranges LVIDd 2D 4.1 3.5 - 5.6 cm AV Peak Rahul 1.3 m/sec LVIDs 2D 2.3 2.1 - 4.1 cm AV Peak PG 7.0 mmHg FS 2D 44.1 % LVOT Peak Rahul 1.1 m/sec LVPWd 2D 1.1 0.6 - 1.1 cm LVOT Peak PG 5.0 mmHg IVSd 2D 1.1 0.6 - 1.1 cm MV E Peak Rahul 0.7 m/sec IVS/LVPW 2D 1.0 MV A Peak Rahul 0.5 m/sec AoR Diam 2D 2.6 2.0 - 3.7 cm MV E/A 1.4 LA/Ao 2D 2 0 - 1 MV Decel Time 165 msec EDV 2D 68.9 cm3 MV E/A 1.4 ESV 2D 12.0 cm3 LA Dimen 2D 4.1 2.3 - 4.0 cm Findings Left Ventricle: Normal left ventricular systolic function. Normal left ventricular cavity size. Normal left ventricular wall thickness. Ejection fraction is visually estimated at 55 %. Right Ventricle: Normal right ventricular size. Normal right ventricular systolic function. Left Atrium: The left atrium is normal in size. Right Atrium: The right atrium is normal in size. Mitral Valve: Normal appearance and function of the mitral valve with trace physiologic regurgitation. Aortic Valve: Normal appearance of the aortic valve. No significant aortic stenosis or insufficiency. Tricuspid Valve: Normal appearance of the tricuspid valve. Unable to obtain RVSP due to minimal presence of tricuspid regurgitation. Pulmonic Valve: Normal pulmonic valve appearance. Pericardium: Normal pericardium with no significant pericardial effusion. Aorta: Normal aortic root. IVC: Normal size and normal respiratory collapse consistent with normal right atrial pressure. Conclusions 1.Normal left ventricular systolic function. Normal left ventricular cavity size. Normal left ventricular wall thickness. Ejection fraction is visually estimated at 55 %. 2.Normal appearance and function of the mitral valve with trace physiologic regurgitation. 3.Normal appearance of the tricuspid valve. Unable to obtain RVSP due to minimal presence of tricuspid regurgitation. Electronically Signed By: Raj Beasley 24-Sep-2016 20:31:07 -0700 Patient Name: EMILY SANTAMARIA Study Date: 24-Sep-2016 [id number]
[2016-09-24] MEDS ORDERED: ROPINIROLE 1 MG TAB PO SCH (21:00)
[2016-09-24] MEDS ORDERED: METOPROLOL 25 MG TAB PO SCH (21:00)
[2016-09-24] MEDS: METOPROLOL 25 MG TAB PO SCH (21:17)
[2016-09-25] VITALS (8 sets, daily range): BP systolic 108–121; BP diastolic 53–65; PULSE 67–70; RESP 18
[2016-09-25 07:10] LABS: ADD SCAN DIFF NO
[2016-09-25 07:15] LABS: ABNORMAL IP MESSAGE 1; BASOPHILS % 0.5 % (0.0-2.0); EOSINOPHILS # 0.3 10^3/ul (0.0-0.5); HEMATOCRIT 30.7 % (37.0-47.0); HEMOGLOBIN 8.8 g/dl (12.0-16.0); LYMPHOCYTES # 2.4 10^3/ul (0.8-2.9); LYMPHOCYTES % 27.2 % (15.0-51.0); MEAN CORPUSCULAR HEMOGLOBIN 21.2 pg (29.0-33.0); MEAN CORPUSCULAR HGB CONC 28.7 g/dl (32.0-37.0); MEAN PLATELET VOLUME 9.8 fl (7.4-10.4); MONOCYTE # 0.6 10^3/ul (0.3-0.9); MONOCYTES % 7.1 % (0.0-11.0); NEUTROPHIL # 5.4 10^3/ul (1.6-7.5); NEUTROPHILS % 61.9 % (39.0-77.0); PLATELET COUNT 315 10^3/UL (140-415); RED BLOOD COUNT 4.15 10^6/ul (4.20-5.40); RED CELL DISTRIBUTION WIDTH 19.2 % (11.5-14.5); WHITE BLOOD COUNT 8.8 10^3/ul (4.8-10.8)
[2016-09-25 07:38] LABS: ALBUMIN 4.1 g/dl (3.3-4.9); ALBUMIN/GLOBULIN RATIO 1.17; BILIRUBIN,INDIRECT 0.2 mg/dl (0-1.1); BILIRUBIN,TOTAL 0.2 mg/dl (0.2-1.3); CALCIUM 9.1 mg/dl (8.4-10.2); CREATININE 0.65 mg/dl (0.44-1.00); POTASSIUM 3.5 mmol/L (3.5-5.1); TOTAL PROTEIN 7.6 g/dl (6.1-8.1)
[2016-09-25 08:09] LABS: THYROID STIMULATING HORMONE 2.95 MIU/L (0.465-4.680)
[2016-09-25] MEDS ORDERED: AMLODIPINE 5 MG TAB PO SCH (09:00)
[2016-09-25] MEDS ORDERED: LISINOPRIL 20 MG TAB PO SCH (09:00)
[2016-09-25] MEDS ORDERED: ISOSORBIDE MONONITRATE(SR)60 MG TAB PO SCH (09:00)
[2016-09-25] MEDS: FERROUS SULFATE (EC) 325 MG TAB PO SCH (09:00)
[2016-09-25] MEDS: ESCITALOPRAM 10 MG TAB PO SCH (09:21)
[2016-09-25] MEDS: ACETAZOLAMIDE (SR) 500 MG CAP PO SCH (09:21)
[2016-09-25] MEDS: ASPIRIN (EC) 325 MG TAB PO SCH (09:22)
[2016-09-25] MEDS: FUROSEMIDE 20 MG TAB PO SCH (09:22)
[2016-09-25] MEDS: METOPROLOL 25 MG TAB PO SCH (09:22)
[2016-09-25] MEDS: LEVOTHYROXINE 100 MCG TAB PO SCH (09:22)
[2016-09-25] MEDS: CLOPIDOGREL 75 MG TAB PO SCH (09:23)
[2016-09-25] MEDS: ENOXAPARIN 40 MG/0.4 ML SYG SC SCH (09:32)
--- NOTE | 2016-09-25 09:56 | RADRPT ---
Vent Rate: 76 bpm RR Interval: 0 msec [place] Interval: 184 msec QRS Duration: 96 msec QT Interval: 432 msec QTC Interval: 486 msec P-R-T [place]: 46 - 54 - 32 degrees Normal sinus rhythm Prolonged QT Abnormal ECG Electronically Signed By: Karan Adams [id number]
[2016-09-25] MEDS ORDERED: ACETAMINOPHEN 325 MG TAB PO PRN (10:00)
[2016-09-25] MEDS: SOD CHLORIDE 0.9% 1,000 ML IV SCH (12:10)
--- NOTE | 2016-09-25 13:53 | CONS ---
Date/Time of Note Date/Time of Note DATE: 09/25/16 TIME: 13:50 Assessment/Plan Assessment/Plan Additional Assessment/Plan CAD s/p PTCA with stenting Dyslipidemia Hypertension Hypothyroidism Hemodynamically stable ruled out for ACS Continue Imdur Continue Metoprolol Continue ASA and Plavix Continue Norvasc and Lisinopril Continue GI and DVT Prophylaxis Consultation Date/Type/Reason Admit Date/Time Sep 24, 2016 at 02:34 Social History Smoking Status: Never smoker Exam/Review of Systems Vital Signs Vitals Vital Signs Date Time Temp Pulse Resp B/P Pulse Ox O2 Delivery O2 Flow Rate FiO2 09/25/16 12:22 69 09/25/16 11:24 98.2 18 108/53 99 09/24/16 05:30 Room Air Intake and Output 09/24/16 09/24/16 09/25/16 14:59 22:59 06:59 Intake Total 600 ml 300 ml Balance 600 ml 300 ml Exam Constitutional: alert Psych: nl mood/affect, no complaints Head: atraumatic, normocephalic Neck: non-tender, supple Respiratory: clear to auscultation Cardiovascular: regular rate and rhythm Gastrointestinal: nl liver, spleen, soft Extremities: normal pulses Results Result Diagram: 09/25/16 0623 09/25/16 0623 Results 24 hrs Laboratory Tests Test 09/25/16 06:23 White Blood Count 8.8 Red Blood Count 4.15 L Hemoglobin 8.8 L Hematocrit 30.7 L Mean Corpuscular Volume 74.0 L Mean Corpuscular Hemoglobin 21.2 L Mean Corpuscular Hemoglobin Concent 28.7 L Red Cell Distribution Width 19.2 H Platelet Count 315 # Mean Platelet Volume 9.8 Neutrophils % 61.9 Lymphocytes % 27.2 Monocytes % 7.1 Eosinophils % 3.0 Basophils % 0.5 Nucleated Red Blood Cells % 0.0 Neutrophils # 5.4 Lymphocytes # 2.4 Monocytes # 0.6 Eosinophils # 0.3 Basophils # 0.0 Nucleated Red Blood Cells # 0.0 Sodium Level 142 Potassium Level 3.5 Chloride Level 108 Carbon Dioxide Level 23 Anion Gap 15 Blood Urea Nitrogen 13 Creatinine 0.65 Glucose Level 122 Hemoglobin A1c 6.2 H Calcium Level 9.1 Total Bilirubin 0.2 Direct Bilirubin 0.00 Indirect Bilirubin 0.2 Aspartate Amino Transf (AST/SGOT) 25 Alanine Aminotransferase (ALT/SGPT) 36 Alkaline Phosphatase 60 Troponin I < 0.012 Total Protein 7.6 Albumin 4.1 Globulin 3.50 H Albumin/Globulin Ratio 1.17 Triglycerides Level 133 Cholesterol Level 127 LDL Cholesterol, Calculated 69 HDL Cholesterol 31 L Cholesterol/HDL Ratio 4.0 Thyroid Stimulating Hormone (TSH) 2.950 Medications Medications Current Medications Acetazolamide (Diamox Sequels) 500 mg DAILY PO Last administered on 09/25/16 09:21; Admin Dose 500 MG; Start 09/24/16 at 09:00 Aspirin (Ecotrin) 325 mg DAILY PO Last administered on 09/25/16 09:22; Admin Dose 325 MG; Start 09/24/16 at 09:00 Clopidogrel Bisulfate (plaVIX) 75 mg DAILY PO Last administered on 09/25/16 09 :23; Admin Dose 75 MG; Start 09/24/16 at 09:00 Escitalopram Oxalate (Lexapro) 20 mg DAILY PO Last administered on 09/25/16 09 :21; Admin Dose 20 MG; Start 09/24/16 at 09:00 Ferrous Sulfate (Ferrous Sulfate (Ec)) 325 mg DAILY PO Last administered on 09:54; Admin Dose 325 MG; Start 09/24/16 at 09:00 Furosemide (Lasix) 20 mg DAILY PO Last administered on 09/25/16 09:22; Admin Dose 20 MG; Start 09/24/16 at 09:00 Ropinirole HCl 1.5 mg 1.5 mg HS PO Last administered on 09/24/16 21:17; Admin Dose 1.5 MG; Start 09/24/16 at 21:00 Sodium Chloride (NS) 1,000 ml @ 60 mls/hr [id number] IV Last administered on 09/24 06:30; Admin Dose 60 MLS/HR; Start 09/24/16 at 02:50 Morphine Sulfate (morphine) 1 mg Q4H PRN IV PAIN LEVEL 7-10; Start 09/24/16 at 03:00 Enoxaparin Sodium (Lovenox) 40 mg DAILY SC Last administered on 09/25/16 09:32 ; Admin Dose 40 MG; Start 09/24/16 at 09:00 Temazepam (Restoril) 15 mg HS PRN PO INSOMNIA; Start 09/24/16 at 07:30 Amlodipine Besylate (Norvasc) 5 mg DAILY PO Last administered on 09/25/16 09: 23; Admin Dose 5 MG; Start 09/25/16 at 09:00 Isosorbide Mononitrate (Imdur) 60 mg DAILY PO Last administered on 09/25/16 09 :23; Admin Dose 60 MG; Start 09/25/16 at 09:00 Lisinopril (Zestril) 20 mg DAILY PO Last administered on 09/25/16 09:21; Admin Dose 20 MG; Start 09/25/16 at 09:00 Metoprolol Tartrate (Lopressor) 25 mg BID PO Last administered on 09/25/16 09: 22; Admin Dose 25 MG; Start 09/24/16 at 21:00 Acetaminophen (Tylenol Tab) 650 mg Q4H PRN PO PAIN AND OR ELEVATED TEMP Last administered on 09/25/16 10:03; Admin Dose 650 MG; Start 09/25/16 at 10:00 CLAUDIA ALVAREZ M.D. Sep 25, 2016 13:53
--- NOTE | 2016-09-25 15:25 | PDOCDIS ---
Discharge Instructions CONDITION Patient Condition: Stable HOME CARE INSTRUCTIONS: Diet Instructions: Low Fat /CholesterolSpecial Diet: NPO ACTIVITY: Activity Restrictions: Slowly Increase Activity Rest between Activity Avoid heavy lifting Do not operate Machinery Do not operate Power Tool Avoid Heavy Housework FOLLOW UP/APPOINTMENTS Appointments Call 911 or got to nearest hospital if symptoms get worse. FU with PMD X 1 week FU with cardiology as recommended, CHRISTIAN Rodriguez dR Sep 25, 2016 15:24
[2016-09-25] MEDS ORDERED: AMLO-145 PO (15:39)
[2016-09-25] MEDS ORDERED: METO-448 PO (15:39)
[2016-09-25] MEDS ORDERED: LISI20TA11 PO (15:39)
[2016-09-25] MEDS ORDERED: METOPROLOL 25 MG TAB PO SCH (21:00)
== END 2016-09-25 17:00 | disposition home or self-care (01) ==
LOC: E/R 23:42 → TEL 09-24 02:34
PROVIDERS: ADMIT Internal Medicine; ATTEND Internal Medicine
DX: R07.9 Chest pain, unspecified (principal); I25.10 Atherosclerotic heart disease of native coronary artery without angina pectoris; Z95.5 Presence of coronary angioplasty implant and graft; I10 Essential (primary) hypertension; E78.5 Hyperlipidemia, unspecified; Z79.82 Long term (current) use of aspirin; F32.9 Major depressive disorder, single episode, unspecified; F41.9 Anxiety disorder, unspecified; E66.01 Morbid (severe) obesity due to excess calories; Z68.42 Body mass index [BMI] 45.0-49.9, adult; Z79.02 Long term (current) use of antithrombotics/antiplatelets; E03.9 Hypothyroidism, unspecified; D64.9 Anemia, unspecified; Z78.0 Asymptomatic menopausal state
CPT/HCPCS: 36415; 71010; 71275; 80048; 80053; 80061; 82550; 82553; 83036; 84443; 84484; 85025; 85378; 85610; 85730; 87081; 93005; 93306; 96372; J1650; J7030; Q9967; Z7500; Z7502; Z7610; G0378

== ENCOUNTER 2017-03-17 06:41 | Inpatient (IN) | payer OTHER ==
[~2017-03-17] VITALS: Ht 157.5 cm; Wt 130.9 kg
[2017-03-17] VITALS (22 sets, daily range): BP systolic 129–194; BP diastolic 54–88; PULSE 70–84; RESP 12–29; Ht 157.5 cm; Wt 130.9 kg
[~2017-03-17 06:41] MED LIST changes: +AMLO-145 PO; -AMLO-147 PO; -FER325 PO; -ISOS30TA5 PO; +LISI20TA11 PO; -LISI40TA9 PO; +NITR0.4T39 SL
[2017-03-17] MEDS ORDERED: LISI40TA9 PO (07:19)
[2017-03-17] MEDS ORDERED: METO-429 PO (07:20)
[2017-03-17] MEDS ORDERED: AMLO-147 PO (07:21)
[2017-03-17] MEDS ORDERED: ROPI2TAB PO (07:21)
[2017-03-17] MEDS ORDERED: ATOR40TA68 PO (07:22)
--- NOTE | 2017-03-17 08:01 | RADRPT ---
PROCEDURE: XR Chest. CLINICAL INDICATION: Chest pain. Preoperative for heart cath. TECHNIQUE: Single frontal view. COMPARISON: 09/24/2016. FINDINGS: The lungs are clear. The heart size is normal. There is no pleural effusion. There is no pneumothorax. IMPRESSION: 1. Normal chest radiograph. 2. No change from 09/24/2016. RPTAT: QQ .Yassine Carrasco MD, MD Date Time Electronically viewed and signed by .Yassine Carrasco MD, MD on 03/17/2017 08:01 .R/
[2017-03-17 08:04] LABS: BASOPHIL # 0.1 10^3/ul (0.0-0.1); BASOPHILS % 0.6 % (0.0-2.0); EOSINOPHILS # 0.2 10^3/ul (0.0-0.5); EOSINOPHILS % 2.2 % (0.0-7.0); HEMATOCRIT 35.1 % (37.0-47.0); HEMOGLOBIN 10.5 g/dl (12.0-16.0); LYMPHOCYTES # 2.5 10^3/ul (0.8-2.9); LYMPHOCYTES % 28.5 % (15.0-51.0); MEAN CORPUSCULAR HEMOGLOBIN 22.7 pg (29.0-33.0); MEAN CORPUSCULAR HGB CONC 29.9 g/dl (32.0-37.0); MEAN CORPUSCULAR VOLUME 75.8 fl (82.0-101.0); MEAN PLATELET VOLUME 9.8 fl (7.4-10.4); MONOCYTE # 0.5 10^3/ul (0.3-0.9); MONOCYTES % 5.7 % (0.0-11.0); NEUTROPHIL # 5.5 10^3/ul (1.6-7.5); NEUTROPHILS % 62.8 % (39.0-77.0); PLATELET COUNT 353 10^3/UL (140-415); RED BLOOD COUNT 4.63 10^6/ul (4.20-5.40); RED CELL DISTRIBUTION WIDTH 21.9 % (11.5-14.5); WHITE BLOOD COUNT 8.8 10^3/ul (4.8-10.8)
[2017-03-17 08:18] LABS: INR 1.04; PARTIAL THROMBOPLASTIN TIME 28.8 Sec (25.0-35.0); PROTIME 13.7 Sec (11.9-14.9); PT RATIO 1.1
[2017-03-17] MEDS ORDERED: SOD CHLORIDE 0.45% 1,000 ML IV SCH (08:30)
[2017-03-17] MEDS: DIAZEPAM 5 MG TAB PO SCH ×2 (08:30→14:52)
[2017-03-17] MEDS ORDERED: DIPHENHYDRAMINE 50 MG CAP PO SCH (08:30)
[2017-03-17] MEDS: FAMOTIDINE 20 MG TAB PO SCH ×2 (08:30→13:30)
[2017-03-17 08:32] LABS: CHOL/HDL RATIO 4.1 RATIO
[2017-03-17 08:44] LABS: CALCIUM 8.6 mg/dl (8.4-10.2); CREATININE 0.63 mg/dl (0.44-1.00)
[2017-03-17] MEDS ORDERED: IODIXANOL LOCM 100 ML BTL ONE ×2 (08:55→11:43)
[2017-03-17] MEDS ORDERED: MIDAZOLAM 1 MG/ML 2 ML INJ ONE ×2 (08:55→10:58)
[2017-03-17] MEDS ORDERED: LIDOCAINE 1% (MDV) 20 ML INJ ONE (08:55)
[2017-03-17] MEDS ORDERED: VERAPAMIL 5 MG INJ ONE (08:55)
[2017-03-17] MEDS ORDERED: NITROGLYCERIN (IC) 100 MCG/ML INJ ONE ×3 (08:55→10:39)
[2017-03-17] MEDS ORDERED: HEPARIN 1000 UNITS/ML 10 ML INJ ONE (08:55)
[2017-03-17] MEDS ORDERED: FENTAnyl 50 MCG/ML VIAL ONE ×2 (08:55→12:10)
[2017-03-17] MEDS ORDERED: SOD CHLORIDE 0.9% 500 ML ONE (10:03)
[2017-03-17] MEDS ORDERED: ONDANSETRON 4 MG INJ ONE (10:24)
[2017-03-17] MEDS ORDERED: BIVALIRUDIN 250MG /NS 50 ML 100 ML IVPB ONE (10:37)
[2017-03-17] MEDS ORDERED: BIVALIRUDIN 250MG /NS 50 ML 50 ML IVPB ONE (11:09)
[2017-03-17] MEDS ORDERED: ASPIRIN 325 MG TAB ONE (11:52)
[2017-03-17] MEDS ORDERED: CLOPIDOGREL 300 MG TAB ONE (11:52)
[2017-03-17] MEDS ORDERED: SOD CHLORIDE 0.9% 1,000 ML IV SCH (12:10)
--- NOTE | 2017-03-17 12:10 | SIPON ---
Date/Time of Note Date/Time of Note DATE: 03/17/17 TIME: 12:06 Operative Report Preoperative Diagnosis 1.Abnl mpi 2.chest pain Postoperative Diagnosis 1.obstructive cad s/p ptca/stent x 1 to LAD mid 2.Obstructive cad s/p ptca/stent x 1 to LCX proximal Operation/Procedure Performed 1.[facility] 2.PTCA/stent Surgeon see signature line circulation assistant 1.Taiwo 2.Adelina Anesthesia: moderate sedation Estimated blood loss: minimal Transfusion Required none Specimen NA Grafts/Implants none Complications none ILENE BUTLER Mar 17, 2017 12:10
[2017-03-17] MEDS ORDERED: AL HYDROX/MG HYDROX/SIMETH 30 ML CUP PO PRN (12:30)
[2017-03-17] MEDS ORDERED: ONDANSETRON 4 MG INJ IV PRN (12:30)
[2017-03-17] MEDS ORDERED: ZOLPIDEM 5 MG TAB PO PRN (12:30)
[2017-03-17] MEDS ORDERED: ACETAMINOPHEN 325 MG TAB PO PRN (12:30)
--- NOTE | 2017-03-17 13:10 | CARRPT ---
DATE OF PROCEDURE: 03/17/2017 TYPE OF PROCEDURE: 1. Left heart catheterization. 2. Coronary angiography. 3. Percutaneous transluminal coronary angioplasty with placement of Synergy drug-eluting stent x1 t o circumflex, 3.5 x 6 mm. 4. Percutaneous transluminal coronary angioplasty with placement of Synergy drug-eluting stent x1 t o mid LAD, 3.0 x 16 mm drug-eluting stent. 5. Femoral angiography. 6. Perclose closure device to right femoral artery. 7. Radial A-line. 8. Moderate conscious sedation. ATTENDING PHYSICIAN: Ilene Beasley MD REFERRING PHYSICIAN: Dr. Sonu Rojas. INDICATION: Chest pain refractory to medical therapy with positive stress test findings for anterio r lateral inferior ischemia. TYPE OF ANESTHESIA: Conscious and local. BRIEF HISTORY: Ms. Cohen is a 41-year-old female with history of hypertension, dyslipidemia, tiesha betes mellitus, prior PTCA and stent placement to LAD, circumflex, ramus who initially presented wit h complaints of recurrent substernal chest pain. Patient was placed ____ medical therapy, continued to have chest pain and subsequently was brought to the cardiac manufacturing lab technician in order to assess for the possibility of recurrent significant obstructive coronary syndrome and symptoms of chest pain and zarco bsequent positive stress test findings. PROCEDURE: After informed consent was obtained, the patient was brought to the [facility] cardiac catheterization lab where initially right radial area was prepped and draped in the usual fashion. Lidocaine 2% infiltrated in the right radial artery in order to achieve adequate an esthesia. Using modified Seldinger technique, the radial artery was cannulated and a 6-Ethiopian arter ial sheath was placed. A 6-Ethiopian JL3 catheter was used to cannulate the left main coronary ostium. With contrast injection, multiple views of the left coronary arterial system were obtained. JL3 w as removed over a guidewire and a JR4 was used to cannulate the right coronary arterial ostium. Wit h contrast injection, multiple views of the right coronary system obtained. JR4 was removed over a guidewire and a JR was then additionally used to measure LVEDP of pulled back across the aortic valv e to assess for significant gradient, which there was not. Subsequently, at this time, given the fi ndings of significant obstructive lesions, we moved directly into an interventional procedure. The patient was given Angiomax bolus continuous infusion. We checked an HCT and it was below the thresh old for a previous ACT as the patient had received a radial cocktail, they had it at 200 IC nitrogly cerin, 2.5 verapamil and 5000 of heparin. Subsequently, the patient's left main was cannulated with a CL3 interventional guide 6-Ethiopian, a 0.014 ____ guidewire was passed distal to the circumflex. T he lesion was pretreated with a 3.0 x 12 mm balloon inflated to 14 to 16 atmospheres and removed. S ubsequently, at this time, we attempted to pass a 3.5 x 60 mm stent unsuccessfully. We added a seco nd Luge wire as a brittany wire and again tried to pass the stent unsuccessfully. Subsequently, at thi s time, we were to add a GuideLiner, but the patient's guide came unseated and was not instantly res eated. Subsequently, at this time, we tried a CLS 3.5 guide, a new CLS3 and a Voda guide all unsucc essful in cannulating the patient's left main. At this time, the patient did have a significant spa sm of her renal artery with lots of pain and so it was elected to change access site. Subsequently, using modified Seldinger technique, the patient's right femoral artery was cannulated and a 6-Frenc h introducer sheath was placed. A 6-Ethiopian CLS 3.5 catheter was used to now cannulate the left main coronary ostium. A 0.014 ____ guidewire was passed distal to the lesion in the circumflex. The Gu ideLiner was placed through this and placed in the ostium and circ and through this we were able to pass a 2.5 x 16 mm drug-eluting stent into the proximal circumflex easily. This was deployed at 16 atmospheres post-dilated with the stent delivery system up to 18 atmospheres. Stent delivery balloo n was removed and a 3.5 x 12 mm noncompliant balloon was used to further post dilate the stent up to 18-20 atmospheres. The stent was removed. Followup angiogram was obtained revealing excellent res ult from the stent, PORSCHE 3 flow throughout the vessel, no signs of complication including perforatio n or dissection. Subsequently, at this time, the wires were pulled back and the Luge wire was redir ected into the LAD and over this wire we directly stented the LAD with a 3.0 x 16 mm drug-eluting st ent up to 16 atmospheres, post dilated with the stent delivery system up to 20 atmospheres. Followu p angiogram was obtained revealing excellent result with deployment of both stents, PORSCHE 3 flow thro ughout the vessel, no signs of complication including perforation or dissection. Subsequently, at t his time, the patient's interventional guidewire was removed. The patient was given additional IC n itroglycerin. Once again, followup angiogram was obtained revealing excellent result for deployment of both the circumflex and LAD stents. No signs of complication, a moderate step down at the dista l end of the circumflex stent, PORSCHE 3 flow throughout all vessels. Subsequently, at this time, the interventional guide and guidewires were removed. Final angiographic image of the right femoral art erial insertion site was then obtained revealing the sheath to be well placed in the right common fe moral artery. Subsequently, a 6-Ethiopian Perclose device was used to seal the vessels completing the procedure. There were no noted complications. FINDINGS: Coronary angiography: Left main 4.5 mm no significant stenoses. Circumflex proximally is a 3.5 mm vessel and has a 90% stenosis. There is a high branching OM or a ramus which is a 2.5 mm vessel and has a mid-body stent widely patent in it ____ in-stent restenosis. The circumflex is a dominant ve ssel and therefore gives off a left-sided PDA and posterolateral branch with the posterolateral bran ch having a 30% stenosis and PDA having a 20% stenosis. There is a distal branching obtuse marginal , 3 mm, no significant focal stenoses. The LAD proximally is a 3 mm vessel, in its mid portion has 80% stenosis. There are widely patent stents proximal and distal to this area with no significant i n-stent restenosis. There are 2 mid branching diagonals, each 2 mm with no significant focal stenos es. The right coronary artery proximally is a 3 mm vessel in its mid body has a 20% stenosis. The remainder of the right coronary artery is free of significant focal stenoses, it does give off a sma ll PDA sub 2 mm vessel with no significant focal stenoses. Measurement left ventricular end diastolic pressure of 14-15, no significant aortic stenosis by grad ient. TOTAL FLUOROSCOPY TIME: Forty-five minutes. TOTAL CONTRAST: 80 mL. IMPRESSION: 1. Two vessel obstructive coronary artery disease involving a high grade ostial circumflex lesion, proximal circumflex lesion and a mid-body LAD lesion, status post successful percutaneous translumin al coronary angioplasty and stent placement x1 to circumflex with a 3.5 x 6 mm with drug-eluting winsome nt and x1 to mid LAD with a 3.0 x 16 mm drug-eluting stent. 2. Normal left heart filling pressures. 3. No significant stenosis or gradient. 4. Normal left heart filling pressures. RECOMMENDATIONS: In light of procedure findings at this time would: 1. Maintain patient on Plavix 75 mg 1 tablet p.o. daily indefinitely. 2. Aspirin 325 mg 1 tablet p.o. daily indefinitely. 3. Maximize medical management. 4. Aggressive risk factor reduction. 5. Patient will be admitted to the ICU for post-intervention observation and continued management o f symptoms with probable discharge the following day. Dictated By: ILENE WEINSTEIN/MAGALY Conf#: [id number] DID#: [id number]
--- NOTE | 2017-03-17 13:18 | RADRPT ---
Vent Rate: 72 bpm RR Interval: 0 msec NV Interval: 174 msec QRS Duration: 96 msec QT Interval: 460 msec QTC Interval: 503 msec P-R-T [place]: 33 - 33 - 48 degrees Normal sinus rhythm Prolonged QT Abnormal ECG Electronically Signed By: Ace Fisher [id number]
[2017-03-17] MEDS: OXYCODONE/ACETAMINOPHEN (5/325) TAB PO PRN ×2 (14:53→21:17)
--- NOTE | 2017-03-17 16:30 | HP ---
Date/Time of Note Date/Time of Note DATE: 03/17/17 TIME: 16:23 Assessment/Plan VTE Prophylaxis VTE Prophylaxis Intervention: SCD's Lines/Catheters IV Catheter Type (from Nrsg): Peripheral IV Assessment/Plan Assessment/Plan - Acute Chest pain - SP Cardiac stent placement- Two vessel obstructive coronary artery disease involving a high grade ostial circumflex lesion, proximal circumflex lesion and a mid-body LAD lesion, status post successful percutaneous transluminal coronary angioplasty and stent placement x1 to circumflex with a 3.5 x 6 mm with drug-eluting stent and x1 to mid LAD with a 3.0 x 16 mm drug-eluting stent. - per cardiology - Hx stent placement - SCD for DVT prophylaxis Plan of care dw Dr Connolly/staff. Anticipate discharge tomorrow if stable. HPI/ROS Admit Date/Time Admit Date/Time Mar 17, 2017 at 12:10 Hx of Present Illness Ms. Cohen is a 41-year-old female with history of hypertension, dyslipidemia , diabetes mellitus, prior PTCA and stent placement to LAD, circumflex, ramus who initially presented with complaints of recurrent substernal chest pain. Today 03/17/2017- Patient underwent -Two vessel obstructive coronary artery disease involving a high grade ostial circumflex lesion, proximal circumflex lesion and a mid-body LAD lesion, status post successful percutaneous transluminal coronary angioplasty and stent placement x1 to circumflex with a 3.5 x 6 mm with drug-eluting stent and x1 to mid LAD with a 3.0 x 16 mm drug- eluting stent. Patien is admitted to ICU under Dr Gates for further evaluation/treatment. Family at bed side- all Qs ANSWERED. Plan of care dw staff/ family. ROS Respiratory: no complaints Cardiovascular: no complaints Gastrointestinal: no complaints Genitourinary: no complaints Musculoskeletal: no complaints PMH/Family/Social Social History Smoking Status: Never smoker Exam/Review of Systems Vital Signs Vitals Vital Signs Date Time Temp Pulse Resp B/P Pulse Ox O2 Delivery O2 Flow Rate FiO2 03/17/17 14:00 75 03/17/17 13:29 24 146/75 100 Room Air 03/17/17 12:40 98.4 Exam Constitutional: alert, other Respiratory: diminished breath sounds, normal air movement Cardiovascular: nl pulses, other Gastrointestinal: non-tender, soft Musculoskeletal: other (right groin- DDI) Extremities: normal pulses Labs Result Diagram: 03/17/17 0740 03/17/17 0740 Medications Medications Current Medications Sodium Chloride (1/2 NS) 1,000 ml @ 20 mls/hr Q24H IV ; Start 03/17/17 at 08:30 ; Stop 03/19/17 at 10:29 Acetaminophen (Tylenol Tab) 650 mg Q4H PRN PO NON-CARDIAC PAIN LEVEL 1-3; Start 03/17/17 at 12:30 Oxycodone/ Acetaminophen (Percocet (5/ 325)) 1 tab Q4H PRN PO REPORTED NON- CARDIAC PAIN 4-7 Last administered on 03/17/17 14:53; Admin Dose 1 TAB; Start 03/17/17 at 12:30 Oxycodone/ Acetaminophen (Percocet (5/ 325)) 2 tab Q4H PRN PO REPORTED NON- CARDIAC PAIN 4-7; Start 03/17/17 at 12:30 Al Hydrox/Mg Hydrox/Simethicone (Mag-Al Plus) 30 ml Q4H PRN PO GASTROINTESTINAL UPSET; Start 03/17/17 at 12:30 Ondansetron HCl 4 mg 4 mg Q4H PRN IV NAUSEA AND/OR VOMITING; Start 03/17/17 at 12:30 Sodium Chloride (NS) 1,000 ml @ 75 mls/hr [id number] IV Last administered on 03/17 14:13; Admin Dose 75 MLS/HR; Start 03/17/17 at 12:10; Stop 03/18/17 at 01: 29 CHRISTIAN LIVE Mar 17, 2017 16:30
[2017-03-18] VITALS (57 sets, daily range): BP systolic 93–180; BP diastolic 52–93; PULSE 68–88; RESP 10–34
[2017-03-18] MEDS: OXYCODONE/ACETAMINOPHEN (5/325) TAB PO PRN ×3 (01:27→21:46)
[2017-03-18 05:51] LABS: BASOPHIL # 0.1 10^3/ul (0.0-0.1); BASOPHILS % 0.7 % (0.0-2.0); EOSINOPHILS # 0.2 10^3/ul (0.0-0.5); EOSINOPHILS % 2.3 % (0.0-7.0); HEMATOCRIT 30.3 % (37.0-47.0); HEMOGLOBIN 9.2 g/dl (12.0-16.0); LYMPHOCYTES # 1.6 10^3/ul (0.8-2.9); LYMPHOCYTES % 19.9 % (15.0-51.0); MEAN CORPUSCULAR HEMOGLOBIN 23.1 pg (29.0-33.0); MEAN CORPUSCULAR HGB CONC 30.4 g/dl (32.0-37.0); MEAN CORPUSCULAR VOLUME 76.1 fl (82.0-101.0); MEAN PLATELET VOLUME 9.6 fl (7.4-10.4); MONOCYTE # 0.6 10^3/ul (0.3-0.9); MONOCYTES % 7.8 % (0.0-11.0); NEUTROPHIL # 5.7 10^3/ul (1.6-7.5); NEUTROPHILS % 69.1 % (39.0-77.0); PLATELET COUNT 305 10^3/UL (140-415); RED BLOOD COUNT 3.98 10^6/ul (4.20-5.40); RED CELL DISTRIBUTION WIDTH 21.4 % (11.5-14.5); WHITE BLOOD COUNT 8.2 10^3/ul (4.8-10.8)
[2017-03-18 06:02] LABS: CALCIUM 8.7 mg/dl (8.4-10.2); CHOL/HDL RATIO 4.2 RATIO; CREATININE 0.6 mg/dl (0.44-1.00); POTASSIUM 3.8 mmol/L (3.5-5.1)
[2017-03-18 06:09] LABS: CK-MB 0.42 ng/ml (0.0-2.4); TROPONIN-I 0.068 ng/ml (0.00-0.12)
--- NOTE | 2017-03-18 10:49 | CONS ---
Date/Time of Note Date/Time of Note DATE: 03/18/17 TIME: 10:44 Assessment/Plan Assessment/Plan Chief Complaint/Hosp Course IMP: 1.POD#1 s/p PTCA./stent x 2(x1 to mid LAD and x 1 to prox LCX with [place]) 2.HTN 3.HL 4.abnl mpi-anterior and lateral ischemia 5.anemia Recc: -OK to tele and if feeling ok later this afternoon with stable VS ok for d/c planning -Resume asa/plavix -Resume baseline anti-hypertensives norvasc/BB/ACEI -ambulate patient -pain control Problems: Consultation Date/Type/Reason Admit Date/Time Mar 17, 2017 at 12:10 Initial Consult Date 03/17/2017 Type of Consultation: cardiology Reason for Consultation cad s/p ptca/stent Referring Provider: MICHAEL CRANDALL MD Exam/Review of Systems Vital Signs Vitals Vital Signs Date Time Temp Pulse Resp B/P Pulse Ox O2 Delivery O2 Flow Rate FiO2 03/18/17 08:32 80 24 101/57 92 Room Air 03/18/17 03:32 98.2 03/18/17 00:00 2.0 Intake and Output 03/17/17 03/17/17 03/18/17 15:00 23:00 07:00 Intake Total 75 ml 1620 ml 100 ml Output Total 400 ml 0 ml 500 ml Balance -325 ml 1620 ml -400 ml Exam Review of Systems: CONSTITUTIONAL: No fevers, chills. PULMONARY: No sob CARDIOVASCULAR: No chest pain/palpitations GASTROINTESTINAL: No nausea/vomiting. GENITOURINARY: No hematuria/dysuria. MUSCULOSKELETAL: moderate pain at cath access site PSYCHIATRIC: The patient denies depression. NEUROLOGIC: No weakness Constitutional: alert, oriented Psych: no complaints Head: normocephalic Neck: jvd (9 cm water), supple Respiratory: clear to auscultation, diminished breath sounds Cardiovascular: regular rate and rhythm Gastrointestinal: non-tender, soft Musculoskeletal: muscle tone (normal), other (R groin minimal eccymosis/mild TTP/no active bleeding) Extremities: edema (trace) Neurological: other (No focal deficits) Results Result Diagram: 03/18/1752103/18/17 0525 Results 24 hrs Laboratory Tests Test 03/18/17 05:22 03/18/17 05:25 White Blood Count 8.2 Red Blood Count 3.98 L Hemoglobin 9.2 L Hematocrit 30.3 L Mean Corpuscular Volume 76.1 L Mean Corpuscular Hemoglobin 23.1 L Mean Corpuscular Hemoglobin Concent 30.4 L Red Cell Distribution Width 21.4 H Platelet Count 305 Mean Platelet Volume 9.6 Neutrophils % 69.1 Lymphocytes % 19.9 Monocytes % 7.8 Eosinophils % 2.3 Basophils % 0.7 Nucleated Red Blood Cells % 0.0 Neutrophils # 5.7 Lymphocytes # 1.6 Monocytes # 0.6 Eosinophils # 0.2 Basophils # 0.1 Nucleated Red Blood Cells # 0.0 Sodium Level 141 Potassium Level 3.8 Chloride Level 103 Carbon Dioxide Level 29 Anion Gap 13 Blood Urea Nitrogen 13 Creatinine 0.60 Glucose Level 108 # Calcium Level 8.7 Creatine Kinase 47 Creatine Kinase Index 0.9 Creatinine Kinase MB (Mass) 0.42 Troponin I 0.068 Triglycerides Level 146 Cholesterol Level 122 LDL Cholesterol, Calculated 64 HDL Cholesterol 29 L Cholesterol/HDL Ratio 4.2 Medications Medications Current Medications Sodium Chloride (1/2 NS) 1,000 ml @ 20 mls/hr Q24H IV ; Start 03/17/17 at 08:30 ; Stop 03/19/17 at 10:29 Acetaminophen (Tylenol Tab) 650 mg Q4H PRN PO NON-CARDIAC PAIN LEVEL 1-3; Start 03/17/17 at 12:30 Oxycodone/ Acetaminophen (Percocet (5/ 325)) 1 tab Q4H PRN PO REPORTED NON- CARDIAC PAIN 4-7 Last administered on 03/18/17 01:27; Admin Dose 1 TAB; Start 03/17/17 at 12:30 Oxycodone/ Acetaminophen (Percocet (5/ 325)) 2 tab Q4H PRN PO REPORTED NON- CARDIAC PAIN 4-7 Last administered on 03/17/17 21:17; Admin Dose 2 TAB; Start 03/17/17 at 12:30 Al Hydrox/Mg Hydrox/Simethicone (Mag-Al Plus) 30 ml Q4H PRN PO GASTROINTESTINAL UPSET; Start 03/17/17 at 12:30 Ondansetron HCl (Zofran Inj) 4 mg Q4H PRN IV NAUSEA AND/OR VOMITING; Start 03/17/17 at 12:30 Aspirin (Aspirin) 325 mg DAILY PO ; Start 03/18/17 at 11:00 Clopidogrel Bisulfate (plaVIX) 75 mg DAILY PO ; Start 03/18/17 at 11:00 Amlodipine Besylate (Norvasc) 10 mg DAILY PO ; Start 03/19/17 at 09:00; Status UNV Atorvastatin Calcium (Lipitor) 40 mg QHS PO ; Start 03/18/17 at 21:00; Status UNV Escitalopram Oxalate (Lexapro) 20 mg DAILY PO ; Start 03/19/17 at 09:00; Status UNV Lisinopril (Zestril) 40 mg DAILY PO ; Start 03/19/17 at 09:00; Status UNV Metoprolol Tartrate (Lopressor) 50 mg BID PO ; Start 03/18/17 at 21:00; Status UNV ILENE BUTLER Mar 18, 2017 10:49
[2017-03-18] MEDS: ASPIRIN 325 MG TAB PO SCH (10:54)
[2017-03-18] MEDS: CLOPIDOGREL 75 MG TAB PO SCH (10:55)
[2017-03-18] MEDS ORDERED: METOPROLOL 50 MG TAB PO SCH (11:00)
[2017-03-18] MEDS ORDERED: NITROGLYCERIN (SL) 0.4 MG TAB SL PRN (11:00)
[2017-03-18] MEDS ORDERED: AMLODIPINE 10 MG TAB PO SCH (11:00)
[2017-03-18] MEDS: LISINOPRIL 20 MG TAB PO SCH (11:12)
[2017-03-18] MEDS: ESCITALOPRAM 10 MG TAB PO SCH (11:14)
[2017-03-18] MEDS: METOPROLOL 25 MG TAB PO SCH ×2 (11:16→20:50)
[2017-03-18] MEDS: LEVOTHYROXINE 100 MCG TAB PO SCH (11:17)
[2017-03-18] MEDS: AMLODIPINE 5 MG TAB PO SCH (11:18)
--- NOTE | 2017-03-18 16:30 | PN ---
Date/Time of Note Date/Time of Note DATE: 03/18/17 TIME: 16:26 Assessment/Plan VTE Prophylaxis VTE Prophylaxis Intervention: SCD's Lines/Catheters IV [facility]ter Type (from [facility] Peripheral IV Urinary Cath still in place: No Assessment/Plan Chief Complaint/Hosp Course Patient is complaining of this headache, blood pressure is on the low side, patient stated that she feels weak to go home, continue telemetry monitoring. Problems: Assessment/Plan - CAD s/p PTCA./stent x 2(x1 to mid LAD and x 1 to prox LCX with [facility]) Dr. Beasley on 03/17. Continue Plavix and aspirin. - Hypertension - Hyperlipidemia - Anemia, most likely iron deficiency anemia, continue iron supplements. - Morbid obesity with BMI of 52 Further recommendations based on clinical course. Plan of care discussed with Dr. Gates. Exam/Review of Systems Vital Signs Vitals Vital Signs Date Time Temp Pulse Resp B/P Pulse Ox O2 Delivery O2 Flow Rate FiO2 03/18/17 16:17 78 03/18/17 15:26 98.5 18 96/58 97 03/18/17 12:30 Room Air 03/18/17 00:00 2.0 Intake and Output 03/17/17 03/17/17 03/18/17 15:00 23:00 07:00 Intake Total 75 ml 1620 ml 100 ml Output Total 400 ml 0 ml 500 ml Balance -325 ml 1620 ml -400 ml Exam Constitutional: alert, obese, oriented Head: normocephalic Neck: supple Respiratory: normal air movement Cardiovascular: nl pulses, regular rate and rhythm Gastrointestinal: non-tender, soft Musculoskeletal: nl extremities to inspection Extremities: normal pulses Neurological: nl mental status Results Result Diagram: 03/18/17 0522 03/18/17 0525 Results 24 hrs Laboratory Tests Test 03/18/17 05:22 03/18/17 05:25 White Blood Count 8.2 Red Blood Count 3.98 L Hemoglobin 9.2 L Hematocrit 30.3 L Mean Corpuscular Volume 76.1 L Mean Corpuscular Hemoglobin 23.1 L Mean Corpuscular Hemoglobin Concent 30.4 L Red Cell Distribution Width 21.4 H Platelet Count 305 Mean Platelet Volume 9.6 Neutrophils % 69.1 Lymphocytes % 19.9 Monocytes % 7.8 Eosinophils % 2.3 Basophils % 0.7 Nucleated Red Blood Cells % 0.0 Neutrophils # 5.7 Lymphocytes # 1.6 Monocytes # 0.6 Eosinophils # 0.2 Basophils # 0.1 Nucleated Red Blood Cells # 0.0 Sodium Level 141 Potassium Level 3.8 Chloride Level 103 Carbon Dioxide Level 29 Anion Gap 13 Blood Urea Nitrogen 13 Creatinine 0.60 Glucose Level 108 # Calcium Level 8.7 Creatine Kinase 47 Creatine Kinase Index 0.9 Creatinine Kinase MB (Mass) 0.42 Troponin I 0.068 Triglycerides Level 146 Cholesterol Level 122 LDL Cholesterol, Calculated 64 HDL Cholesterol 29 L Cholesterol/HDL Ratio 4.2 Medications Medications Current Medications Sodium Chloride (1/2 NS) 1,000 ml @ 20 mls/hr Q24H IV ; Start 03/17/17 at 08:30 ; Stop 03/19/17 at 10:29 Acetaminophen (Tylenol Tab) 650 mg Q4H PRN PO NON-CARDIAC PAIN LEVEL 1-3; Start 03/17/17 at 12:30 Oxycodone/ Acetaminophen (Percocet (5/ 325)) 1 tab Q4H PRN PO REPORTED NON- CARDIAC PAIN 4-7 Last administered on 03/18/17 13:29; Admin Dose 1 TAB; Start 03/17/17 at 12:30 Oxycodone/ Acetaminophen (Percocet (5/ 325)) 2 tab Q4H PRN PO REPORTED NON- CARDIAC PAIN 4-7 Last administered on 03/17/17 21:17; Admin Dose 2 TAB; Start 03/17/17 at 12:30 Al Hydrox/Mg Hydrox/Simethicone (Mag-Al Plus) 30 ml Q4H PRN PO GASTROINTESTINAL UPSET; Start 03/17/17 at 12:30 Ondansetron HCl (Zofran Inj) 4 mg Q4H PRN IV NAUSEA AND/OR VOMITING; Start 03/17/17 at 12:30 Aspirin (Aspirin) 325 mg DAILY PO Last administered on 03/18/17 10:54; Admin Dose 325 MG; Start 03/18/17 at 11:00 Clopidogrel Bisulfate (plaVIX) 75 mg DAILY PO Last administered on 03/18/17 10 :55; Admin Dose 75 MG; Start 03/18/17 at 11:00 Atorvastatin Calcium (Lipitor) 40 mg QHS PO ; Start 03/18/17 at 21:00 Escitalopram Oxalate (Lexapro) 20 mg DAILY PO Last administered on 03/18/17 11 :14; Admin Dose 20 MG; Start 03/18/17 at 11:00 Lisinopril (Zestril) 40 mg DAILY PO Last administered on 03/18/17 11:12; Admin Dose 40 MG; Start 03/18/17 at 11:00 Nitroglycerin (Nitroglycerin (Sl Tab) 0.4 Mg) 1 tab Q5M PRN SL ANGINA; Start 03/18/17 at 11:00 Amlodipine Besylate (Norvasc) 5 mg DAILY PO Last administered on 03/18/17 11: 18; Admin Dose 5 MG; Start 03/18/17 at 11:00 Metoprolol Tartrate (Lopressor) 25 mg BID PO Last administered on 03/18/17 11: 16; Admin Dose 25 MG; Start 03/18/17 at 11:00 ROGER MARKS Mar 18, 2017 16:30
[2017-03-18 19:19] LABS: ABNORMAL IP MESSAGE 1; BASOPHILS % 0.5 % (0.0-2.0); EOSINOPHILS # 0.2 10^3/ul (0.0-0.5); EOSINOPHILS % 2.6 % (0.0-7.0); HEMATOCRIT 33.4 % (37.0-47.0); HEMOGLOBIN 9.9 g/dl (12.0-16.0); LYMPHOCYTES # 2.3 10^3/ul (0.8-2.9); LYMPHOCYTES % 26.7 % (15.0-51.0); MEAN CORPUSCULAR HGB CONC 29.6 g/dl (32.0-37.0); MEAN CORPUSCULAR VOLUME 77.5 fl (82.0-101.0); MEAN PLATELET VOLUME 9.4 fl (7.4-10.4); MONOCYTE # 0.5 10^3/ul (0.3-0.9); MONOCYTES % 6.1 % (0.0-11.0); NEUTROPHIL # 5.5 10^3/ul (1.6-7.5); NEUTROPHILS % 63.7 % (39.0-77.0); PLATELET COUNT 300 10^3/UL (140-415); RED BLOOD COUNT 4.31 10^6/ul (4.20-5.40); RED CELL DISTRIBUTION WIDTH 22.3 % (11.5-14.5); WHITE BLOOD COUNT 8.5 10^3/ul (4.8-10.8)
[2017-03-18 19:20] LABS: POSITIVE DIFF @See below
[2017-03-18] MEDS: SOD CHLORIDE 0.9% 500 ML IV ONE ×2 (20:49→21:46)
[2017-03-18] MEDS: FERROUS SULFATE (EC) 325 MG TAB PO SCH (20:50)
[2017-03-18] MEDS ORDERED: ATORVASTATIN 40 MG TAB PO SCH (21:00)
[2017-03-18] MEDS ORDERED: DOCUSATE SODIUM 100 MG CAP PO PRN (22:00)
[2017-03-19] VITALS (8 sets, daily range): BP systolic 97–130; BP diastolic 46–81; PULSE 73–82; RESP 18–20
[2017-03-19] MEDS: LEVOTHYROXINE 100 MCG TAB PO SCH ×2 (06:34→08:47)
[2017-03-19 08:27] LABS: BASOPHILS % 0.5 % (0.0-2.0); EOSINOPHILS # 0.2 10^3/ul (0.0-0.5); EOSINOPHILS % 2.3 % (0.0-7.0); HEMATOCRIT 29.7 % (37.0-47.0); HEMOGLOBIN 8.8 g/dl (12.0-16.0); LYMPHOCYTES # 2.5 10^3/ul (0.8-2.9); LYMPHOCYTES % 29.5 % (15.0-51.0); MEAN CORPUSCULAR HEMOGLOBIN 22.7 pg (29.0-33.0); MEAN CORPUSCULAR HGB CONC 29.6 g/dl (32.0-37.0); MEAN CORPUSCULAR VOLUME 76.5 fl (82.0-101.0); MONOCYTE # 0.6 10^3/ul (0.3-0.9); MONOCYTES % 7.5 % (0.0-11.0); NEUTROPHIL # 5.2 10^3/ul (1.6-7.5); PLATELET COUNT 304 10^3/UL (140-415); RED BLOOD COUNT 3.88 10^6/ul (4.20-5.40); WHITE BLOOD COUNT 8.6 10^3/ul (4.8-10.8)
--- NOTE | 2017-03-19 08:30 | RADRPT ---
PROCEDURE: US Lower extremity arterial. CLINICAL INDICATION: diminished pulses TECHNIQUE: Multiple sonographic images of the bilateral lower extremity arteries were obtained uti lizing grayscale, color-flow and doppler imaging. The images were reviewed on a PACS workstation. COMPARISON: None. FINDINGS: Moderate diffuse bilateral calcified plaque. Velocities and waveforms were obtained as described below. RIGHT LEG: Right common femoral artery: The 60.5 cm/s; triphasic waveforms Right deep femoral artery: 48.2 cm/s; triphasic waveforms Right proximal superficial femoral artery: None measured Right mid superficial femoral artery: 54.7 cm/s; triphasic waveforms Right distal superficial femoral artery: 48.7 cm/s; triphasic waveforms Right popliteal artery: 24.1 cm/s; triphasic waveforms Right anterior tibial artery: 17.1 cm/s; triphasic waveforms Right posterior tibial artery: 42.4 cm/s; triphasic waveforms Right peroneal artery: 41 cm/s; triphasic waveforms Right dorsalis pedis artery: 22.3 cm/s; triphasic waveforms Right MAGALIS: 0.79 LEFT LEG: Left common femoral artery: 128 cm/s; triphasic waveforms Left deep femoral artery: 128 cm/s; triphasic waveforms Left proximal superficial femoral artery: 135 cm/s; triphasic waveforms Left mid superficial femoral artery: 110.9 cm/s; triphasic waveforms Left distal superficial femoral artery: 123.8 cm/s; triphasic waveforms Left popliteal artery: 55.1 cm/s; triphasic waveforms Left anterior tibial artery: 48.2 cm/s; triphasic wavefoms Left posterior tibial artery: 38.3 cm/s; triphasic waveforms Left peroneal artery: 38.3 cm/s; triphasic waveforms Left dorsalis pedis artery: Not measured. Triphasic wave form reported. Left MAGALIS: 1.3 IMPRESSION: 1. Moderate diffuse calcified plaque. 2. Diminish peak systolic velocities on the right suggestive of upstream stenosis. 3. Greater than or equal to 50 % stenosis at the level of the proximal popliteal artery. 4. CTA correlation is recommended. RPTAT:AAJJ Physician Dottie Date Time Electronically viewed and signed by Physician Dottie on 03/19/2017 08:29 ARUN/
[2017-03-19 08:40] LABS: IRON 20 ug/dl (35-150)
[2017-03-19] MEDS: ASPIRIN 325 MG TAB PO SCH (08:46)
[2017-03-19] MEDS: CLOPIDOGREL 75 MG TAB PO SCH (08:46)
[2017-03-19] MEDS: ESCITALOPRAM 10 MG TAB PO SCH (08:47)
[2017-03-19 08:49] LABS: TOTAL IRON BINDING CAPACITY 358 ug/dl (241-421)
[2017-03-19] MEDS: AMLODIPINE 5 MG TAB PO SCH (08:49)
[2017-03-19] MEDS: FERROUS SULFATE (EC) 325 MG TAB PO SCH ×2 (08:49→11:49)
[2017-03-19] MEDS: METOPROLOL 25 MG TAB PO SCH (08:49)
[2017-03-19] MEDS: LISINOPRIL 20 MG TAB PO SCH (08:49)
[2017-03-19 08:50] LABS: CALCIUM 8.7 mg/dl (8.4-10.2); CREATININE 0.68 mg/dl (0.44-1.00)
[2017-03-19 09:03] LABS: POTASSIUM 4.2 mmol/L (3.5-5.1)
--- NOTE | 2017-03-19 11:16 | PN ---
Date/Time of Note Date/Time of Note DATE: 03/19/17 TIME: 11:16 Assessment/Plan VTE Prophylaxis VTE Prophylaxis Intervention: other Lines/Catheters IV C[facility]ter Type (from [facility] [place] Urinary Cath still in place: No Assessment/Plan Chief Complaint/Hosp Course - CAD s/p PTCA./stent x 2(x1 to mid LAD and x 1 to prox LCX with [facility]) Dr. Beasley on 03/17. Continue Plavix and aspirin. - Hypertension - Hyperlipidemia - Anemia, most likely iron deficiency anemia, continue iron supplements. - Morbid obesity with BMI of 52 Problems: Subjective 24 Hr Interval Summary Free Text/Dictation Patient sleeping but denies chest pain, patient did note fever overnight Exam/Review of Systems Vital Signs Vitals Vital Signs Date Time Temp Pulse Resp B/P Pulse Ox O2 Delivery O2 Flow Rate FiO2 03/19/17 08:33 79 03/19/17 07:49 99.0 20 97/46 95 03/18/17 16:35 21 03/18/17 12:30 Room Air 03/18/17 00:00 2.0 Intake and Output 03/18/17 03/18/17 03/19/17 15:00 23:00 07:00 Intake Total 500 ml 500 ml Balance 500 ml 500 ml Exam Constitutional: well developed Head: atraumatic, normocephalic Neck: supple Respiratory: clear to auscultation Cardiovascular: regular rate and rhythm Gastrointestinal: non-tender, soft Extremities: normal pulses Results Result Diagram: 03/19/1716 03/19/17 0716 Results 24 hrs Laboratory Tests Test 03/18/17 19:08 03/19/17 07:16 White Blood Count 8.5 8.6 Red Blood Count 4.31 3.88 L Hemoglobin 9.9 L 8.8 L Hematocrit 33.4 L 29.7 L Mean Corpuscular Volume 77.5 L 76.5 L Mean Corpuscular Hemoglobin 23.0 L 22.7 L Mean Corpuscular Hemoglobin Concent 29.6 L 29.6 L Red Cell Distribution Width 22.3 H 22.0 H Platelet Count 300 304 Mean Platelet Volume 9.4 10.0 Neutrophils % 63.7 60.0 Lymphocytes % 26.7 29.5 Monocytes % 6.1 7.5 Eosinophils % 2.6 2.3 Basophils % 0.5 0.5 Nucleated Red Blood Cells % 0.0 0.0 Neutrophils # 5.5 5.2 Lymphocytes # 2.3 2.5 Monocytes # 0.5 0.6 Eosinophils # 0.2 0.2 Basophils # 0.0 0.0 Nucleated Red Blood Cells # 0.0 0.0 Sodium Level 139 Potassium Level 4.2 Chloride Level 100 Carbon Dioxide Level 29 Anion Gap 14 Blood Urea Nitrogen 15 Creatinine 0.68 Glucose Level 149 # Calcium Level 8.7 Iron Level 20 L Total Iron Binding Capacity 358 Percent Iron Saturation 6 L Medications Medications Current Medications Acetaminophen (Tylenol Tab) 650 mg Q4H PRN PO NON-CARDIAC PAIN LEVEL 1-3 Last administered on 03/19/17 06:34; Admin Dose 650 MG; Start 03/17/17 at 12:30 Oxycodone/ Acetaminophen (Percocet (5/ 325)) 1 tab Q4H PRN PO REPORTED NON- CARDIAC PAIN 4-7 Last administered on 03/18/17 13:29; Admin Dose 1 TAB; Start 03/17/17 at 12:30 Oxycodone/ Acetaminophen (Percocet (5/ 325)) 2 tab Q4H PRN PO REPORTED NON- CARDIAC PAIN 4-7 Last administered on 03/18/17 21:46; Admin Dose 2 TAB; Start 03/17/17 at 12:30 Al Hydrox/Mg Hydrox/Simethicone (Mag-Al Plus) 30 ml Q4H PRN PO GASTROINTESTINAL UPSET; Start 03/17/17 at 12:30 Ondansetron HCl (Zofran Inj) 4 mg Q4H PRN IV NAUSEA AND/OR VOMITING; Start 03/17/17 at 12:30 Aspirin (Aspirin) 325 mg DAILY PO Last administered on 03/19/17 08:46; Admin Dose 325 MG; Start 03/18/17 at 11:00 Clopidogrel Bisulfate (plaVIX) 75 mg DAILY PO Last administered on 03/19/17 08 :46; Admin Dose 75 MG; Start 03/18/17 at 11:00 Atorvastatin Calcium (Lipitor) 40 mg QHS PO Last administered on 03/18/17 20: 49; Admin Dose 40 MG; Start 03/18/17 at 21:00 Escitalopram Oxalate (Lexapro) 20 mg DAILY PO Last administered on 03/19/17 08 :47; Admin Dose 20 MG; Start 03/18/17 at 11:00 Lisinopril (Zestril) 40 mg DAILY PO Last administered on 03/18/17 11:12; Admin Dose 40 MG; Start 03/18/17 at 11:00 Nitroglycerin (Nitroglycerin (Sl Tab) 0.4 Mg) 1 tab Q5M PRN SL ANGINA; Start 03/18/17 at 11:00 Amlodipine Besylate (Norvasc) 5 mg DAILY PO Last administered on 03/18/17 11: 18; Admin Dose 5 MG; Start 03/18/17 at 11:00 Metoprolol Tartrate (Lopressor) 25 mg BID PO Last administered on 03/18/17 11: 16; Admin Dose 25 MG; Start 03/18/17 at 11:00 Ferrous Sulfate (Ferrous Sulfate (Ec)) 325 mg TID PO ; Start 03/18/17 at 21:00 Docusate Sodium (Colace) 100 mg BID PRN PO CONSTIPATION; Start 03/18/17 at 22: 00 NIC SAHU Mar 19, 2017 11:16
--- NOTE | 2017-03-19 12:19 | CONS ---
Date/Time of Note Date/Time of Note DATE: 03/19/17 TIME: 12:16 Assessment/Plan Assessment/Plan Additional Assessment/Plan CAD s/p stenting mid LAD and LCX Hypertension Hyperlipidemia Hemodynamically stable Continue Metoprolol and Lisinopril and Norvasc Continue ASA and Plavix Continue Lipitor Continue Levothyroxine started on Pepcid Consultation Date/Type/Reason Admit Date/Time Mar 17, 2017 at 12:10 Social History Smoking Status: Never smoker Exam/Review of Systems Vital Signs Vitals Vital Signs Date Time Temp Pulse Resp B/P Pulse Ox O2 Delivery O2 Flow Rate FiO2 03/19/17 11:26 98.7 90 20 97/59 96 03/18/17 16:35 21 03/18/17 12:30 Room Air 03/18/17 00:00 2.0 Intake and Output 03/18/17 03/18/17 03/19/17 15:00 23:00 07:00 Intake Total 500 ml 500 ml Balance 500 ml 500 ml Exam Constitutional: alert, oriented Head: atraumatic, normocephalic Neck: non-tender, supple Respiratory: clear to auscultation Cardiovascular: regular rate and rhythm Gastrointestinal: nl liver, spleen, non-tender, soft Extremities: normal pulses Results Result Diagram: 03/19/17 0716 03/19/17 0716 Results 24 hrs Laboratory Tests Test 03/18/17 19:08 03/19/17 07:16 White Blood Count 8.5 8.6 Red Blood Count 4.31 3.88 L Hemoglobin 9.9 L 8.8 L Hematocrit 33.4 L 29.7 L Mean Corpuscular Volume 77.5 L 76.5 L Mean Corpuscular Hemoglobin 23.0 L 22.7 L Mean Corpuscular Hemoglobin Concent 29.6 L 29.6 L Red Cell Distribution Width 22.3 H 22.0 H Platelet Count 300 304 Mean Platelet Volume 9.4 10.0 Neutrophils % 63.7 60.0 Lymphocytes % 26.7 29.5 Monocytes % 6.1 7.5 Eosinophils % 2.6 2.3 Basophils % 0.5 0.5 Nucleated Red Blood Cells % 0.0 0.0 Neutrophils # 5.5 5.2 Lymphocytes # 2.3 2.5 Monocytes # 0.5 0.6 Eosinophils # 0.2 0.2 Basophils # 0.0 0.0 Nucleated Red Blood Cells # 0.0 0.0 Sodium Level 139 Potassium Level 4.2 Chloride Level 100 Carbon Dioxide Level 29 Anion Gap 14 Blood Urea Nitrogen 15 Creatinine 0.68 Glucose Level 149 # Calcium Level 8.7 Iron Level 20 L Total Iron Binding Capacity 358 Percent Iron Saturation 6 L Medications Medications Current Medications Acetaminophen (Tylenol Tab) 650 mg Q4H PRN PO NON-CARDIAC PAIN LEVEL 1-3 Last administered on 03/19/17 06:34; Admin Dose 650 MG; Start 03/17/17 at 12:30 Oxycodone/ Acetaminophen (Percocet (5/ 325)) 1 tab Q4H PRN PO REPORTED NON- CARDIAC PAIN 4-7 Last administered on 03/18/17 13:29; Admin Dose 1 TAB; Start 03/17/17 at 12:30 Oxycodone/ Acetaminophen (Percocet (5/ 325)) 2 tab Q4H PRN PO REPORTED NON- CARDIAC PAIN 4-7 Last administered on 03/18/17 21:46; Admin Dose 2 TAB; Start 03/17/17 at 12:30 Al Hydrox/Mg Hydrox/Simethicone (Mag-Al Plus) 30 ml Q4H PRN PO GASTROINTESTINAL UPSET; Start 03/17/17 at 12:30 Ondansetron HCl (Zofran Inj) 4 mg Q4H PRN IV NAUSEA AND/OR VOMITING; Start 03/17/17 at 12:30 Aspirin (Aspirin) 325 mg DAILY PO Last administered on 03/19/17 08:46; Admin Dose 325 MG; Start 03/18/17 at 11:00 Clopidogrel Bisulfate (plaVIX) 75 mg DAILY PO Last administered on 03/19/17 08 :46; Admin Dose 75 MG; Start 03/18/17 at 11:00 Atorvastatin Calcium (Lipitor) 40 mg QHS PO Last administered on 03/18/17 20: 49; Admin Dose 40 MG; Start 03/18/17 at 21:00 Escitalopram Oxalate (Lexapro) 20 mg DAILY PO Last administered on 03/19/17 08 :47; Admin Dose 20 MG; Start 03/18/17 at 11:00 Lisinopril (Zestril) 40 mg DAILY PO Last administered on 03/18/17 11:12; Admin Dose 40 MG; Start 03/18/17 at 11:00 Nitroglycerin (Nitroglycerin (Sl Tab) 0.4 Mg) 1 tab Q5M PRN SL ANGINA; Start 03/18/17 at 11:00 Amlodipine Besylate (Norvasc) 5 mg DAILY PO Last administered on 03/18/17 11: 18; Admin Dose 5 MG; Start 03/18/17 at 11:00 Metoprolol Tartrate (Lopressor) 25 mg BID PO Last administered on 03/18/17 11: 16; Admin Dose 25 MG; Start 03/18/17 at 11:00 Ferrous Sulfate (Ferrous Sulfate (Ec)) 325 mg TID PO ; Start 03/18/17 at 21:00 Docusate Sodium (Colace) 100 mg BID PRN PO CONSTIPATION; Start 03/18/17 at 22: 00 CLAUDIA ALVAREZ M.D. Mar 19, 2017 12:19
[2017-03-19 12:52] LABS: FERRITIN 7.8 ng/ml (6.2-137.0)
[2017-03-19 13:23] LABS: FOLATE 15.2 ng/ml (2.8-20.0)
--- NOTE | 2017-03-22 14:22 | RADRPT ---
Vent Rate: 71 bpm RR Interval: 0 msec [place] Interval: 174 msec QRS Duration: 90 msec QT Interval: 462 msec QTC Interval: 502 msec P-R-T [place]: 45 - 53 - 43 degrees Normal sinus rhythm Prolonged QT Abnormal ECG Electronically Signed By: Ace Fisher [id number]
--- NOTE | 2017-03-22 14:22 | RADRPT ---
Vent Rate: 73 bpm RR Interval: 0 msec [place] Interval: 166 msec QRS Duration: 86 msec QT Interval: 436 msec QTC Interval: 480 msec P-R-T [place]: 40 - -9 - 39 degrees Normal sinus rhythm Low voltage QRS Cannot rule out Anterior infarct , age undetermined Abnormal ECG Electronically Signed By: Ace Fisher [id number]
== END 2017-03-19 13:30 | disposition home or self-care (01) | DRG 247 ==
LOC: SDS 06:41 → ICU 12:10 → TEL 03-18 12:53 → OBSVTOIN 03-19 09:59
PROVIDERS: ADMIT Internal Medicine; ATTEND Internal Medicine
PROC: 4A023N7 Measurement of Cardiac Sampling and Pressure, Left Heart, Percutaneous Approach (ICD-10-PCS; 2017-03-17)
PROC: B2011ZZ Plain Radiography of Multiple Coronary Arteries using Low Osmolar Contrast (ICD-10-PCS; 2017-03-17)
PROC: 027135Z Dilation of Coronary Artery, Two Arteries with Two Drug-eluting Intraluminal Devices, Percutaneous Approach (ICD-10-PCS; principal; 2017-03-17 09:00)
DX: I25.10 Atherosclerotic heart disease of native coronary artery without angina pectoris (principal); Z68.43 Body mass index [BMI] 50.0-59.9, adult; I10 Essential (primary) hypertension; E78.5 Hyperlipidemia, unspecified; E66.01 Morbid (severe) obesity due to excess calories; D50.9 Iron deficiency anemia, unspecified
CPT/HCPCS: 71010; 80048; 80061; 82550; 82553; 82607; 82728; 82746; 83540; 84484; 84703; 85025; 85610; 85730; 87081; 93005; 93458; 93922; 99217; G0378; C1725; C1760; C1874; C1887; C1894; J0583; J1644; J2250; J2405; J3010; J7040; Q9967

== ENCOUNTER → 2017-05-31 | Outpatient (CLI) | END | disposition home or self-care (01) ==

== ENCOUNTER 2018-10-10 23:07 | Emergency (ER) | payer OTHER ==
[~2018-10-10] VITALS: Ht 160 cm; Wt 134.3 kg
[~2018-10-10 23:07] MED LIST changes: -ACET500C PO; -AMLO-145 PO; +AMLO-147 PO; +ATOR40TA68 PO; +LISI10TA2 PO; -LISI20TA11 PO; +METO-429 PO; -METO-448 PO; +METO25TA4 PO; +ROPI0.5T2 PO; -ROPI1TAB24 PO; -TEMA15CA6 PO
[2018-10-10 23:09] VITALS: Ht 160 cm; Wt 134.3 kg
[2018-10-10] MEDS ORDERED: IPRATROPIUM (NEB) 0.5 MG/2.5 ML AMP NEB STA (23:40)
[2018-10-10] MEDS ORDERED: ALBUTEROL 0.083% (NEB) 2.5 MG/3 ML AMP NEB STA (23:40)
[2018-10-11] MEDS ORDERED: ALBU8.5H8 INH (00:26)
[2018-10-11] MEDS ORDERED: PROM5SYR2 PO (00:27)
--- NOTE | 2018-10-11 00:32 | ERD ---
ER Documentation Chief Complaint Chief Complaint cough w/ nasal congestion x2 days. no fever HPI Patient is a 43-year-old female with Past medical history of hypertension, hyperlipidemia, type II DM, depression, anxiety, hypothyroidism who presents the ER for concerns of productive cough and congestion x2 days. Patient states she has yellow-green nasal secretions. Patient denies any fevers. Patient denies any chest pain or shortness of breath. She states she is unable to sleep secondary to coughing throughout the night. Patient states she is tried taking [id number] medications with minimal alleviation of symptoms. She states she took some of her dad's Robitussin with codeine which helped her and that she is requesting a prescription of this medication right now. Patient denies any recent travel. No sick contacts. ROS All systems reviewed and are negative except as per history of present illness. Medications Home Meds Active Scripts Promethazine HCl/Codeine (Prometh-Codein 6.25-10 mg/5 ml) 5 Ml Syrup, 5 ML PO Q6, #4 OZ Prov:MARSHA PALACIOS PA-C 10/11/18 Albuterol Sulfate* (Proair HFA*) 8.5 Gm Hfa.aer.ad, 2 PUFF INH Q6, #1 INHALER Prov:MARSHA PALACIOS PA-C 10/11/18 Reported Medications Ropinirole Hcl* (Ropinirole Hcl*) 0.5 Mg Tablet, 0.5 MG PO DAILY, TAB 08/24/17 Metoprolol Tartrate* (Lopressor*) 50 Mg Tab, 50 MG PO QPM, #60 TAB 08/24/17 Metoprolol Tartrate* (Lopressor*) 25 Mg Tablet, 25 MG PO QAM, #60 TAB 08/24/17 Lisinopril* (Lisinopril*) 10 Mg Tablet, 10 MG PO DAILY, #30 TAB 08/24/17 Amlodipine Besylate* (Amlodipine Besylate*) 10 Mg Tablet, 10 MG PO DAILY, #30 TAB 08/24/17 Atorvastatin* (Atorvastatin*) 40 Mg Tablet, 40 MG PO QHS, #30 TAB 03/17/17 Nitroglycerin* (Nitrostat*) 0.4 Mg Tab.subl, 0.4 MG SL Q5MIN PRN for CHEST PAIN, BOTTLE 09/24/16 Aspirin* (Aspirin* EC) 325 Mg Tab, 325 MG PO DAILY, TAB 09/04/16 Clopidogrel Bisulfate (Clopidogrel) 75 Mg Tablet, 75 MG PO DAILY, #30 TAB 09/04/16 Furosemide* (Lasix*) 20 Mg Tablet, 20 MG PO DAILY, TAB 09/01/16 Levothyroxine Sodium* (Levoxyl*) 100 Mcg Tablet, 100 MCG PO BEFORE BREAKFAST, #30 TAB 09/01/16 Escitalopram Oxalate* (Lexapro*) 20 Mg Tablet, 20 MG PO DAILY, #30 TAB 09/01/16 Allergies Allergies: Coded Allergies: No Known Allergy (Unverified , 08/24/17) PMhx/Soc History of Surgery: Yes (PTCA/ STENT, C/ S X 2, LAP BAND AND REMOVAL) Anesthesia Reaction: No Hx Neurological Disorder: No Hx Respiratory Disorders: No Hx Cardiac Disorders: Yes (CHEST PAIN, HTN, HLP) Hx Psychiatric Problems: Yes (DEPRESSION, ANXIETY) Hx Miscellaneous Medical Probl: Yes (HYPOTHYROIDISM) Hx Alcohol Use: No Hx Substance Use: No Hx Tobacco Use: No Smoking Status: Never smoker FmHx Family History: No diabetes Physical Exam Vitals Vital Signs Date Temp Pulse Resp B/P (MAP) Pulse Ox O2 O2 Flow FiO2 Time Delivery Rate 10/11/18 98.1 103 20 178/89 98 Room Air 01:02 (118) 10/11/18 83 20 98 21 00:20 10/10/18 98.2 95 16 172/114 100 23:09 (133) Physical Exam GENERAL: Well-developed, well-nourished female. Appears in no acute distress. HEAD: Normocephalic, atraumatic. EYES: Pupils are equally reactive bilaterally. EOMs grossly intact. No conjunctival erythema. ENT: Moist mucous membranes. No uvula deviation. No kissing tonsils. NECK: Supple. No meningismus. Normal range of motion of the neck. LUNG: Actively coughing. Wheezing noted bilaterally. No abdominal retractions, no nasal flaring, no tripoding. HEART: Regular rate and rhythm. No murmurs, rubs or gallops. EXTREMITIES: Equal pulses bilaterally. No peripheral clubbing, cyanosis or edema. No unilateral leg swelling. NEUROLOGIC: Alert and oriented. Moving all four extremities without any difficulty. Normal speech. Steady gait. SKIN: Normal color. Warm and dry. No rashes or lesions. Results 24 hrs Current Medications Medications Dose Sig/Nitza Start Time Status Last (Trade) Ordered Route PRN Stop Time Admin Dose Reason Admin Albuterol 5 mg ONCE STAT 10/10/18 DC 10/11/18 (Proventil NEB 23:40 10/10/18 00:20 0.083% (Neb)) 23:42 Ipratropium 1 mg ONCE STAT 10/10/18 DC 10/11/18 [place] NEB 23:40 10/10/18 00:20 (Atrovent 23:42 0.02% (Neb)) Procedures/MDM MEDICAL DECISION MAKING: This is a 43-year-old female who presents the ER for concerns of cough and congestion x2 days. Vital signs were reviewed. Patient was afebrile. Patient was not hypoxic. ENT exam was normal. Lung exam did reveal wheezing. Patient had no abdominal retractions, nasal flaring, no tripoding. Patient was given albuterol breathing treatment. Steroids were deferred as patient does have history of diabetes. Upon reexamination, patient improvement in symptoms. Breath sounds are improved. Cures report was performed and shows that patient does take Zolpidem. She was advised not to take Robitussin with codeine if she takes her Zolpidem. Patient understood. Given these findings, the patients presentation is most consistent with viral URI with wheezing. Low suspicion for pneumonia, meningitis, sinusitis, otitis externa, acute otitis media, strep pharyngitis, epiglottitis or peritonsillar abscess. DISCHARGE: At this time, patient is stable for discharge and outpatient management. Supportive therapies such as OTC throat lozenges, salt water gurgles, popsicles and jello discussed. I have instructed the patient to follow-up with his/her primary care physician in 1-2 days. I have instructed the patient to promptly return to the ER for any new or worsening symptoms including increased pain, swelling, fever, nausea, vomiting, weakness or difficulty breathing. The patient and/or family expressed understanding of and agreement with this plan. All questions were answered. Home care instructions were provided. Patients blood pressure was elevated (>120/80) but appears stable without evidence of hypertensive emergency, hypertensive urgency or end-organ failure. I had discussion with the patient about the risks of hypertension. I have advised the patient to follow up with his/her primary care physician for outpatient monitoring and treatment for hypertension in 2-3 days. I have instructed the patient to return to the ER for any new or worsening symptoms including chest pain, shortness of breath, headache, blurred vision, confusion, nausea, vomiting or LOC. Disclaimer: Inadvertent spelling and grammatical errors are likely due to EHR/dictation software use and do not reflect on the overall quality of patient care. Also, please note that the electronic time recorded on this note does not necessarily reflect the actual time of the patient encounter. Departure Diagnosis: Primary Impression: Upper respiratory infection URI type: unspecified URI Qualified Codes: J06.9 - Acute upper respiratory infection, unspecified Condition: Fair Patient Instructions: Preventing Common Respiratory Infections Referrals: BEVERLEY ASHFORD (PCP) Additional Instructions: Call your primary care doctor TOMORROW for an appointment during the next 1-2 days.See the doctor sooner or return here if your condition worsens before your appointment time. MARSHA PALACIOS PA-C Oct 11, 2018 00:32
[2018-10-11 01:02] VITALS: BP 178/89; PULSE 103; RESP 20
== END 2018-10-11 01:04 | disposition home or self-care (01) ==
LOC: FTE 23:07
DX: J06.9 Acute upper respiratory infection, unspecified (principal); I10 Essential (primary) hypertension; E03.9 Hypothyroidism, unspecified; Z79.02 Long term (current) use of antithrombotics/antiplatelets; Z79.82 Long term (current) use of aspirin
CPT/HCPCS: 94664; Z7502; Z7610

== ENCOUNTER 2018-12-25 12:50 | Observation (INO) | payer OTHER ==
[~2018-12-25] VITALS: Ht 160 cm; Wt 131.0 kg
[~2018-12-25 12:50] MED LIST changes: +ALBU8.5H8 INH; +LINA5TAB PO; +METF-849 PO; +PROM5SYR2 PO; +Ranolazine (Sr) PO
[2018-12-25 12:54] VITALS: Ht 160 cm; Wt 131.0 kg
[2018-12-25] MEDS ORDERED: ASPIRIN 325 MG TAB PO STA (13:46)
[2018-12-25] MEDS ORDERED: NITROGLYCERIN 2% 1 GM OINT PKT TD STA (13:46)
[2018-12-25] MEDS ORDERED: ONDANSETRON (ODT) 4 MG TAB ODT STA (15:25)
[2018-12-25] MEDS ORDERED: HYDROCODONE/APAP (10/325) TAB PO ONE (15:30)
[2018-12-25] MEDS ORDERED: ACETAMINOPHEN 325 MG TAB PO PRN (16:00)
[2018-12-25] MEDS ORDERED: ONDANSETRON 4 MG INJ IV PRN (16:00)
[2018-12-25] MEDS ORDERED: NACL 0.9% 3 ML SYG IV SCH (16:00)
[2018-12-25] MEDS ORDERED: morphine 2 MG INJ IV PRN (16:00)
[2018-12-25] MEDS ORDERED: ACET/BUTAL/CAFF TAB PO PRN (18:30)
[2018-12-25] MEDS ORDERED: NITROGLYCERIN (SL) 0.4 MG TAB SL ONE (19:30)
[2018-12-25] MEDS ORDERED: ATORVASTATIN 40 MG TAB PO SCH (21:00)
[2018-12-25] MEDS ORDERED: METOPROLOL 50 MG TAB PO SCH (21:00)
[2018-12-25 21:17] VITALS: BP 147/72; PULSE 71; RESP 18
[2018-12-25] MEDS: RANOLAZINE (SR) 500 MG TAB PO SCH (22:32)
[2018-12-25] MEDS ORDERED: NITROGLYCERIN (SL) 0.4 MG TAB SL PRN (23:00)
[2018-12-25] MEDS ORDERED: ZOLPIDEM 5 MG TAB PO ONE (23:00)
[2018-12-25] MEDS ORDERED: HYDROmorphONE 0.5 MG/0.5 ML SYG IV PRN (23:00)
[2018-12-25 23:54] VITALS: BP 125/66; PULSE 67; RESP 18
[2018-12-26 03:58] VITALS: BP 131/70; PULSE 70; RESP 18
[2018-12-26] MEDS ORDERED: LEVOTHYROXINE 100 MCG TAB PO SCH (07:00)
[2018-12-26 07:20] VITALS: BP 118/61; PULSE 70; RESP 17
[2018-12-26] MEDS ORDERED: CLOPIDOGREL 75 MG TAB PO SCH (09:00)
[2018-12-26] MEDS ORDERED: FUROSEMIDE 20 MG TAB PO SCH (09:00)
[2018-12-26] MEDS ORDERED: ASPIRIN (EC) 325 MG TAB PO SCH (09:00)
[2018-12-26] MEDS ORDERED: ROPINIROLE 0.25 MG TAB PO SCH (09:00)
[2018-12-26] MEDS ORDERED: METOPROLOL 25 MG TAB PO SCH (09:00)
[2018-12-26] MEDS ORDERED: LISINOPRIL 10 MG TAB PO SCH (09:00)
[2018-12-26] MEDS ORDERED: ESCITALOPRAM 10 MG TAB PO SCH (09:00)
[2018-12-26] MEDS ORDERED: AMLODIPINE 10 MG TAB PO SCH (09:00)
[2018-12-26] MEDS: RANOLAZINE (SR) 500 MG TAB PO SCH (09:11)
[2018-12-26] MEDS ORDERED: GLUCOSE GEL 15 GRAM TUBE PO PRN ×2 (12:30)
[2018-12-26] MEDS ORDERED: GLUCAGON 1 MG INJ IM PRN (12:30)
[2018-12-26] MEDS ORDERED: DEXTROSE 50% 50 ML SYRINGE IV PRN ×2 (12:30)
[2018-12-26] MEDS ORDERED: GLUCOSE GEL 15 GRAM TUBE BUCCAL PRN (12:30)
[2018-12-26] MEDS ORDERED: REGADENOSON 0.4 MG/5 ML SYG ONE (13:34)
[2018-12-26 15:40] VITALS: BP 137/65; PULSE 79; RESP 17
[2018-12-26] MEDS ORDERED: INSULIN ASPART [NOVOLOG] 3 ML PEN SC SCH (17:55)
== END 2018-12-26 18:10 | disposition home or self-care (01) ==
LOC: E/R 12:50 → TEL 15:26
PROVIDERS: ADMIT Internal Medicine; ATTEND Internal Medicine
DX: R07.89 Other chest pain (principal); I25.10 Atherosclerotic heart disease of native coronary artery without angina pectoris; Z95.5 Presence of coronary angioplasty implant and graft; I10 Essential (primary) hypertension; E78.5 Hyperlipidemia, unspecified; E03.9 Hypothyroidism, unspecified; F32.9 Major depressive disorder, single episode, unspecified; E11.9 Type 2 diabetes mellitus without complications; E66.01 Morbid (severe) obesity due to excess calories; Z68.43 Body mass index [BMI] 50.0-59.9, adult; R51 Headache; Z79.82 Long term (current) use of aspirin; D32.9 Benign neoplasm of meninges, unspecified
CPT/HCPCS: 36415; 70450; 71045; 78452; 80048; 80061; 81025; 82550; 82553; 82962; 83036; 83735; 84100; 84439; 84443; 84484; 85025; 93005; 93017; 93306; A9500; A9505; J1815; J2785; Z7500; Z7502; Z7610; 96372; G0378; J2270